=== PATIENT | female | born 1970 ===

== ENCOUNTER 2019-12-30 11:00 | Outpatient (RCR) | payer OTHER, SELFPAY ==
--- NOTE | 2019-12-16 13:43 | HO.PHPPROGNO ---
Subjective Subjective Reason For Visit: F33.2 Assessment & Plan Certification I certify that partial hospital treatment is medically necessary due to the symptoms and problems resulting from the patient's mental illness and the failure to treat the patient at the partial hospital level of care would likely result in the patient requiring inpatient psychiatric care which could not be prevented at a less intensive level of care. Greater than 50% of the session was spent on counseling and/or coordination of care Discharge Plan Discharge Attending provider: Ronny Mai Medications: No Action olanzapine 5 mg tablet 1 tab PO BEDTIME RF: 0 gabapentin 100 mg capsule 1 cap PO BID RF: 0 albuterol sulfate 90 mcg/actuation HFA aerosol inhaler 1 puff PO Q4H PRN (Reason: Respiratory Distress) RF: 0 fluoxetine 20 mg capsule 1 cap PO DAILY RF: 0
--- NOTE | 2019-12-16 20:47 | HO.PHPPROGNO ---
Subjective Subjective Date of Service: 12/16/19 Reason For Visit: F33.2 Interim History: Anahi reports she is tolerating current regime, however, she is still not sleeping well Medication Compliance: Yes Side effects from medications: No Attending Groups: Yes Mental Status Exam Mental Status Exam Patient Orientation: Person, Place, Time and Situation Level of Consciousness: Awake and Alert Patient Behavior: Appropriate and Anxious Mood Description: Depressed, Anxious and Sad Affect Description: Depressed and Anxious Patient Cognition Impaired: No Ability to Follow Directions: Excellent Speech Pattern: Clear Memory Description: Intact Thought Process: Intact Thought Content: Intact Depressive Symptoms: Insomnia Judgement: Good Judgement and Insight: Intact Assessment & Plan Patient educated on: medication risk/benefits and therapeutic strategies Informed Consent: understands and further education needed Reason for contiued partial hosp. stay Substantial Risk for: harm to self and rapid decompensation Certification I certify that partial hospital treatment is medically necessary due to the symptoms and problems resulting from the patient's mental illness and the failure to treat the patient at the partial hospital level of care would likely result in the patient requiring inpatient psychiatric care which could not be prevented at a less intensive level of care. Greater than 50% of the session was spent on counseling and/or coordination of care Discharge Plan Discharge Attending provider: Ronny Mai Medications: No Action olanzapine 5 mg tablet 1 tab PO BEDTIME RF: 0 gabapentin 100 mg capsule 1 cap PO BID RF: 0 albuterol sulfate 90 mcg/actuation HFA aerosol inhaler 1 puff PO Q4H PRN (Reason: Respiratory Distress) RF: 0 fluoxetine 20 mg capsule 1 cap PO DAILY RF: 0
--- NOTE | 2019-12-23 11:42 | HO.PHPPROGNO ---
Subjective Subjective Date of Service: 12/23/19 Reason For Visit: F33.2 Interim History: Anahi reports medication increased with out patient team. Fluoxetine to 40 mg daily and Olanzapine to 7.5 mg HS. Discussed taking steps to improve self care and asks if we can refer her for nutritional counseling. Medication Compliance: Yes Side effects from medications: No Attending Groups: Yes Mental Status Exam Mental Status Exam Patient Orientation: Person, Place, Time and Situation Level of Consciousness: Awake, Appropriate and Alert Patient Behavior: Appropriate and Cooperative Mood Description: Depressed and Flat Affect Description: Appropriate and Flat Patient Cognition Impaired: No Ability to Follow Directions: Excellent Speech Pattern: Clear Memory Description: Intact Hallucinations: None Delusions: Not Present Thought Process: Intact Thought Content: positive for Intact Depressive Symptoms: Diff. Making Decisions, Changes in Appetite, Feelings of Worthlessness, Hopelessness, Feelings of Guilt, Unhappiness and Loss of Energy Judgement: Good Assessment & Plan Patient educated on: medication risk/benefits and therapeutic strategies Informed Consent: understands and further education needed Reason for contiued partial hosp. stay Substantial Risk for: harm to self, inability to function and rapid decompensation Certification I certify that partial hospital treatment is medically necessary due to the symptoms and problems resulting from the patient's mental illness and the failure to treat the patient at the partial hospital level of care would likely result in the patient requiring inpatient psychiatric care which could not be prevented at a less intensive level of care. Greater than 50% of the session was spent on counseling and/or coordination of care Discharge Plan Discharge Attending provider: Ronny Mai Additional Instructions: Out patient team has increased Fluoxetine to 40 mg daily and Olanzapine to 7.5 mg hs. Medications: Continued trazodone 100 mg tablet 100 mg PO BEDTIME MDD 100 mg PRN (Reason: insomnia) Qty: 30 RF: 0 Discontinued olanzapine 5 mg tablet 1 tab PO BEDTIME RF: 0 fluoxetine 20 mg capsule 1 cap PO DAILY RF: 0 No Action gabapentin 100 mg capsule 1 cap PO BID RF: 0 albuterol sulfate 90 mcg/actuation HFA aerosol inhaler 1 puff PO Q4H PRN (Reason: Respiratory Distress) RF: 0 fluoxetine 40 mg 40 mg PO DAILY RF: 0 olanzapine 7.5 mg 7.5 mg PO BEDTIME RF: 0
--- NOTE | 2019-12-29 15:45 | PC.NURSE ---
12/29/2019 Spoke with client about tomorrow being her last day. She is interested in Day treatment. I called and spoke with Berta Carlisle from [facility] day treatment and she states that they are only having one group per day and that the client is not a good fit due to her baseline level of depression. radha
--- NOTE | 2019-12-30 11:12 | PC.NURSE ---
Spoke to patient, patient to reach out to her PCP to get a referral to a manager business planning to learn heathy eating habits.
--- NOTE | 2019-12-30 15:15 | PC.NURSE ---
Called the client's therapist to inform her of client's discharge and ongoing level of depression.
--- NOTE | 2019-12-31 15:34 | PM.EVENT ---
Event Note Event Note: Pt's final day of Partial Hospital Program was 12/30/19. Call to pt on that day to review medications, answer questions. Pt did not answer and no voice mail was set up on her telephone. As a result, she was not contacted.
== END 2019-12-30 23:55 | disposition home or self-care (01) ==
LOC: HO.PHPA 11:00
PROVIDERS: Visit Provider Psychiatry & Neurology Psychiatry
DX: F33.2 Major depressive disorder, recurrent severe without psychotic features (principal)
CPT/HCPCS: 90853; 99213

== ENCOUNTER 2020-02-23 10:48 | Outpatient (REF) | payer OTHER, SELFPAY ==
[2020-02-24 11:10] LABS: BV Int Neg Control Negative (Negative); BV Int Pos Control Positive (Positive)
[2020-02-26 06:38] LABS: CT PCR NOT DETECTED (Not Detect.); NG PCR NOT DETECTED (Not Detect.)
== END 2020-02-23 10:49 | disposition home or self-care (01) ==
LOC: HO.LAB 10:48
PROVIDERS: PCP Hospitalist; Visit Provider Obstetrics & Gynecology
DX: Z01.419 Encounter for gynecological examination (general) (routine) without abnormal findings (principal); R35.0 Frequency of micturition
CPT/HCPCS: 83036; 87480; 87491; 87510; 87591; 87660

== ENCOUNTER 2020-04-04 14:23 | Outpatient (REF) | payer OTHER, SELFPAY | END 2020-04-04 14:24 | disposition home or self-care (01) | LOC: HO.LAB 14:23 | PROVIDERS: PCP Hospitalist; Visit Provider Internal Medicine | DX: Z20.822 Contact with and (suspected) exposure to COVID-19 (principal) | CPT/HCPCS: 36415; C9803; U0003 ==

== ENCOUNTER 2020-06-19 16:29 | Outpatient (REF) | payer OTHER, SELFPAY ==
--- NOTE | ~2020-06-19 | MM_ITS ---
EXAMINATION: MM SCREENING DIGITAL BREAST TOMOSYNTHESIS, BILATERAL CLINICAL INFORMATION: Screening. Asymptomatic. No local outside prior exams are unable to be located. The lifetime risk of breast cancer based on the Tyrer-Cuzick Model is 8%. COMPARISON: None. TECHNIQUE: Digital breast tomosynthesis is performed in both the craniocaudal and mediolateral oblique views along with computer-aided detection (CAD). Synthesized 2D images are generated from the tomosynthesis. FINDINGS: There are scattered areas of fibroglandular density (ACR BI-RADS breast composition Category b). Breast tissue composition borders on predominantly fatty. Background fibroglandular and stromal densities are unremarkable. There is no significant mass or architectural abnormality. No abnormal calcifications. The axilla and skin contours are unremarkable. MM/MM tomosynthesis screening BI IMPRESSION: No mammographic evidence of malignancy. ASSESSMENT: BI-RADS 1: Negative RECOMMENDATION: Routine annual mammography screening. This patient's information was entered into a reminder system with a target due date for their next mammogram.
== END 2020-06-19 16:30 | disposition home or self-care (01) ==
LOC: HO.MAMMO 16:29
PROVIDERS: Visit Provider Hospitalist
DX: Z12.31 Encounter for screening mammogram for malignant neoplasm of breast (principal)
CPT/HCPCS: 77063; 77067

== ENCOUNTER 2020-07-03 09:11 | Outpatient (REF) | payer OTHER, SELFPAY ==
[2020-07-03 11:00] LABS: Alanine Aminotransferase 18 U/L (0-31); Albumin Level 3.8 g/dL (3.5-5.0); Alkaline Phosphatase 121 U/L (39-117); Anion Gap 14 (12-20); Aspartate Amino Transferase 16 U/L (5-31); Bilirubin Total 0.5 mg/dL (0.0-1.0); Blood Urea Nitrogen 14 mg/dL (9-16); Calcium 8.6 mg/dL (8.4-10.2); Carbon Dioxide 28 mmol/L (22-29); Chloride 103 mmol/L (96-108); Cholesterol 238 mg/dL; Estimated Glomerular Filt Rate > 60; Glucose Fasting 138 mg/dL (60-99); HDL Cholesterol 43 mg/dL; LDL Cholesterol Calculated 177 mg/dl; Potassium 4.2 mmol/L (3.3-5.1); Sodium 141 mmol/L (135-145); Total Protein 6.7 g/dL (6.5-8.0); Triglycerides 90 mg/dL
[2020-07-03 11:22] LABS: TSH reflex Free T4 3.38 uIU/mL (0.32-4.0)
== END 2020-07-03 09:12 | disposition home or self-care (01) ==
LOC: HO.WFDLDS 09:11
PROVIDERS: Visit Provider Family Medicine
DX: Z00.00 Encounter for general adult medical examination without abnormal findings (principal); Z13.220 Encounter for screening for lipoid disorders; Z13.29 Encounter for screening for other suspected endocrine disorder
CPT/HCPCS: 36415; 80053; 80061; 84443

== ENCOUNTER 2020-08-22 14:15 | Outpatient (REF) | payer OTHER, SELFPAY ==
[2020-08-22 15:52] LABS: Hematocrit 35.8 % (37-47); Mean Corpuscular HGB Conc 30.7 g/dl (31.0-35.0); Mean Corpuscular Volume 81.4 fL (80-98); Mean Platelet Volume 10.8 fL (9.4-12.3); Platelet Count 299 X10*3/uL (160-400); Red Cell Distribution Width 13.9 % (11.0-16.0); White Blood Count 7.6 X10*3/uL (4.8-10.8)
== END 2020-08-22 14:16 | disposition home or self-care (01) ==
LOC: HO.LAB 14:15
PROVIDERS: PCP Hospitalist; Visit Provider Nurse Practitioner Family
DX: Z01.818 Encounter for other preprocedural examination (principal); K21.9 Gastro-esophageal reflux disease without esophagitis
CPT/HCPCS: 36415; 85027; 99202

== ENCOUNTER 2020-09-05 10:59 | Outpatient (REF) | payer OTHER, SELFPAY ==
[2020-09-05 14:13] LABS: Alanine Aminotransferase 13 U/L (0-31); Albumin Level 3.8 g/dL (3.5-5.0); Alkaline Phosphatase 122 U/L (39-117); Anion Gap 9 (12-20); Aspartate Amino Transferase 14 U/L (5-31); Bilirubin Total 0.5 mg/dL (0.0-1.0); Blood Urea Nitrogen 14 mg/dL (9-16); Calcium 9.1 mg/dL (8.4-10.2); Carbon Dioxide 31 mmol/L (22-29); Chloride 103 mmol/L (96-108); Cholesterol 207 mg/dL; Estimated Glomerular Filt Rate > 60; Glucose Fasting 132 mg/dL (60-99); HDL Cholesterol 44 mg/dL; LDL Cholesterol Calculated 139 mg/dl; Potassium 4.2 mmol/L (3.3-5.1); Sodium 139 mmol/L (135-145); Total Protein 6.8 g/dL (6.5-8.0); Triglycerides 120 mg/dL
== END 2020-09-05 11:00 | disposition home or self-care (01) ==
LOC: HO.WFDLDS 10:59
PROVIDERS: Visit Provider Family Medicine
DX: Z00.00 Encounter for general adult medical examination without abnormal findings (principal)
CPT/HCPCS: 36415; 80053; 80061

== ENCOUNTER 2021-02-23 09:06 | Outpatient (REF) | payer OTHER, SELFPAY ==
--- NOTE | ~2021-02-23 | XR_ITS ---
EXAMINATION: XR CHEST CLINICAL INFORMATION: Wheezing. COMPARISON: None TECHNIQUE: 2 views of the chest were obtained. FINDINGS: No significant abnormality is noted involving the heart, lungs, mediastinum, or soft tissues. There is a 5 mm rounded density seen overlying the anterior aspect of the left fourth rib which may represent bone island or calcified granuloma. XR/XR chest 2V IMPRESSION: No acute disease.
--- NOTE | ~2021-02-23 | XR_ITS ---
EXAMINATION: XR CERVICAL SPINE CLINICAL INFORMATION: Cervicalgia. COMPARISON: None TECHNIQUE: 3 views of the cervical spine were obtained. FINDINGS: No abnormal prevertebral soft tissue swelling is seen. No acute fracture of the cervical spine is seen. There is mild narrowing of the C4-C5 and C5-C6 disc spaces. There is marginal spurring seen at C5-C7. XR/XR cervical spine 2V IMPRESSION: Mild cervical spondylosis without evidence of acute fracture.
== END 2021-02-23 09:07 | disposition home or self-care (01) ==
LOC: HO.XRAY 09:06
PROVIDERS: Absent Provider Hospitalist; PCP Hospitalist; Visit Provider Advanced Practice Midwife
DX: Z01.419 Encounter for gynecological examination (general) (routine) without abnormal findings (principal); R06.2 Wheezing; M54.2 Cervicalgia; Z83.3 Family history of diabetes mellitus; Z20.2 Contact with and (suspected) exposure to infections with a predominantly sexual mode of transmission
CPT/HCPCS: 71046; 72040

== ENCOUNTER 2021-02-23 11:15 | Outpatient (REF) | payer OTHER, SELFPAY ==
[2021-02-24 03:00] LABS: CT PCR NOT DETECTED (Not Detect.); NG PCR NOT DETECTED (Not Detect.)
[2021-02-26 22:07] LABS: HPV mRNA E6/E7 rflx Not Detected (Not Detected)
== END 2021-02-23 11:16 | disposition home or self-care (01) ==
LOC: HO.LAB 11:15
PROVIDERS: Visit Provider Advanced Practice Midwife
DX: Z12.4 Encounter for screening for malignant neoplasm of cervix (principal); Z11.3 Encounter for screening for infections with a predominantly sexual mode of transmission; Z11.51 Encounter for screening for human papillomavirus (HPV)
CPT/HCPCS: 87491; 87591; 87624; 88142

== ENCOUNTER 2021-03-19 19:15 | Inpatient (IN) | payer OTHER, SELFPAY ==
[2021-03-19 19:28] VITALS: BP 135/68; PULSE 84; RESP 16; TEMP 36.7; O2SAT 99; BMI 36.3
--- NOTE | 2021-03-19 19:33 | ED_ITS ---
HPI - Psych General Stated Complaint: HALLUCINATIONS,ANXIETY Time Seen by Provider: 03/19/21 19:27 Source: patient Mode of arrival: EMS Limitations: no limitations History of Present Illness MD complaint: suicidal ideation and feels depressed Onset (ago): day(s) Duration: getting worse History of same: Yes Relieving factors: none Exacerbating factors: none Context: significant life stressor Associated psychiatric symptoms: depression, suicidal ideation and auditory hallucinations Associated symptoms: denies other symptoms Treatments prior to arrival: placed on mental health hold If self harm: admits thoughts of self harm Related Data Home Medications Medication Instructions Recorded Confirmed sertraline 100 mg tablet 100 mg PO DAILY 08/22/20 12/05/20 polyethylene glycol 3350 17 17 g PO DAILY PRN 12/05/20 12/05/20 gram/dose oral powder (Miralax) aripiprazole 5 mg tablet 5 mg PO DAILY 02/21/21 clonidine HCl 0.1 mg tablet 0.1 mg PO TID tab 02/21/21 escitalopram oxalate 10 mg tablet 10 mg PO DAILY 02/21/21 hydroxyzine HCl 25 mg tablet 25 mg PO DAILY 02/21/21 pyridoxine (vitamin B6) 250 mg 0 mg PO 02/21/21 tablet (Vitamin B-6) quetiapine 400 mg tablet 400 mg PO BEDTIME 02/21/21 Previous Rx's Medication Instructions Recorded fluoxetine 20 mg capsule 20 mg PO DAILY #30 cap 01/12/20 clotrimazole 1 % topical cream 1 applic TOPICAL BID #28.35 g 01/20/20 [id number] 1 cap PO BID PRN 30 Days #10 cap 11/20/20 50 mg-300 mg-40 mg capsule (Fioricet) montelukast 10 mg tablet 10 mg PO DAILY 90 Days #90 tab 11/29/20 ProAir RespiClick 90 mcg/actuation 1 inh INHALATION Q4-6H PRN 30 Days 12/05/20 breath activated (albuterol #1 ea NS sulfate) docusate sodium 100 mg capsule 100 mg PO BEDTIME #30 cap 12/05/20 terbinafine HCl 1 % topical cream 1 appl TOPICAL BID 14 Days #30 g 12/05/20 (Antifungal (terbinafine)) gabapentin 100 mg capsule 200 mg PO TID 30 Days #180 cap 01/10/21 olanzapine 10 mg tablet 10 mg PO BEDTIME 30 Days #30 tab 02/05/21 fluticasone 232 mcg-salmeterol 14 1 inh INHALATION Q12H 30 Days #1 ea 02/21/21 mcg/actuation breath activated powdr melatonin 10 mg capsule 20 mg PO DAILY 30 Days #60 cap 02/21/21 omeprazole 20 mg capsule,delayed 20 mg PO QAM #90 cap 03/02/21 release Allergies Allergy/AdvReac Type Severity Reaction Status Date / Time No Known Allergies Allergy Verified 03/19/21 14:53 [No Known Allergies*] Review of Systems Review of Systems: Constitutional : No Fever, No Chills ENT/Mouth : No Ear Pain, No Nasal Congestion, No sore throat Eyes: No Eye Pain, No Swelling, No Redness Cardiovascular : No Chest Pain, No SOB Respiratory : No Cough, No Sputum, No Dyspnea Gastrointestinal : No Nausea, No Vomiting, No Diarrhea, No Hematochezia, No Melena Genitourinary : No Dysuria, No Urinary Frequency, No Hematuria Musculoskeletal : No Myalgias Skin : No Skin Lesions, No rash Neuro : No Weakness, No Numbness, No Paresthesias, No Dizziness, No Headache Psych : positive Anxiety, positive Depression, positive SI no HI Heme/Lymph: No Lymphadenopathy Endocrine : No Polyuria, No Polydipsia All other systems reviewed and are negative [facility] Past Medical History Medical History Anxiety Depression History of gastrectomy Screen for STD (sexually transmitted disease) Surgical History History of hysterectomy, supracervical History of sleeve gastrectomy Family History Family History Father Diabetes Mother Diabetes Heart disease Family/Other FH: mental illness Maternal Aunt Ovarian cancer Social History Social History Housing: House Alcohol intake: never Patient Tobacco Use Status: Never used Tobacco e-Cigarette/Vaping Use: Never Used Second Hand Smoke Exposure: No Advance Directives: No Advance Directives Information Provided: No Patient : No service: No Current occupational status: unemployed Sexual orientation: Straight/Heterosexual Gender identity: Female Cognitive needs: No Hearing needs: No Vision needs: No Physical Exam Vital Signs: Appearance: Alert. Oriented X3. No acute distress. Eyes: Pupils equal, round and reactive to light. ENT: Pharynx normal. Neck: Normal inspection. Neck supple. CVS: Normal heart rate and rhythm. Pulses normal. Respiratory: No respiratory distress. Breath sounds normal. Abdomen: Soft and nontender. Skin: Skin warm and dry. Normal skin color. Normal skin turgor. Extremities: No lower extremity edema. No calf ttp Neuro: Oriented X 3. No motor deficit. No sensory deficit. CN 2-12 intact Psych: flat, withdrawn, depressed Course Course Course Narrative: Physician observation started at 736pm. Patient placed in physician observation because the patient needed more time for placement given SI complaints. At the time observation was started the patient's vitals were stable, patient is alert and oriented but slightly anxious, Neuro: nonfocal, CV RRR, Lungs clear MDM - Psych MDM Narrative Medical decision making narrative: 50 yo female with hx of schizoaffective disorder here with c/o AH, SI here with section 12 and bedsearch from community - at this time will need labs, COVID swab, has no medical complaints at this time Discharge Plan Discharge Clinical Impression: Suicidal ideation Patient Disposition: Still a Patient Prescriptions: No Action fluoxetine 20 mg capsule 20 mg PO DAILY Qty: 30 RF: 3 [id number]-aqlgtwgpjrijx-duew [Fioricet] 50-300-40 mg capsule 1 cap PO BID PRN (Reason: pain) 30 Days Qty: 10 RF: 0 montelukast 10 mg tablet 10 mg PO DAILY 90 Days Qty: 90 RF: 1 gabapentin 100 mg capsule 200 mg PO TID 30 Days Qty: 180 RF: 1 olanzapine 10 mg tablet 10 mg PO BEDTIME 30 Days Qty: 30 RF: 0 omeprazole 20 mg capsule,delayed release(DR/EC) 20 mg PO QAM Qty: 90 RF: 1 clotrimazole 1 % cream 1 applic topical BID Qty: 28.35 RF: 0 polyethylene glycol 3350 [Miralax] 17 gram/dose powder 17 g PO DAILY PRN (Reason: constipation) RF: 0 ProAir RespiClick 90 mcg/actuation aerosol powdr breath activated 1 inh inhalation Q4-6H PRN (Reason: shortness of breath or wheezing) 30 Days Qty: 1 RF: 5 docusate sodium 100 mg capsule 100 mg PO BEDTIME Qty: 30 RF: 3 terbinafine HCl [Antifungal (terbinafine)] 1 % cream 1 appl topical BID 14 Days Qty: 30 RF: 0 quetiapine 400 mg tablet 400 mg PO BEDTIME RF: 0 pyridoxine (vitamin B6) [Vitamin B-6] 250 mg tablet 0 mg PO RF: 0 escitalopram oxalate 10 mg tablet 10 mg PO DAILY RF: 0 hydroxyzine HCl 25 mg tablet 25 mg PO DAILY RF: 0 aripiprazole 5 mg tablet 5 mg PO DAILY RF: 0 melatonin 10 mg capsule 20 mg PO DAILY 30 Days Qty: 60 RF: 3 fluticasone propion-salmeterol 232-14 mcg/actuation aerosol powdr breath activated 1 inh inhalation Q12H 30 Days Qty: 1 RF: 3 sertraline 100 mg tablet 100 mg PO DAILY RF: 0 clonidine HCl 0.1 mg tablet 0.1 mg PO TID RF: 0
[2021-03-19] MEDS: LORazepam 1 MG TABLET PO (19:48)
[2021-03-19 20:01] LABS: Appearance Urine CLEAR; Color Urine YELLOW; Glucose Urine UA NEG (NEG); Leukocyte Esterase Urine NEG (NEG); Nitrite Urine NEG (NEG); UACC Culture Trigger NO; Urine Blood 1+ (NEG); Urine Ketones NEG (NEG); Urine Protein NEG (NEG-TRACE)
[2021-03-19 20:03] LABS: UPreg QC Valid YES; Urine Pregnancy NEGATIVE (NEGATIVE)
[2021-03-19 20:08] LABS: Bacteria Urine TRACE /LPF; Squamous Epithelial Cell Urine TRACE /LPF; WBC Urine 0-2 /HPF (0-4)
[2021-03-19 20:11] LABS: MANUAL DIFF FLAG NO
[2021-03-19 20:12] LABS: Basophils Percent Auto 0.2 % (0-2); Hematocrit 38.7 % (37.0-47.0); Hemoglobin 11.8 g/dl (12.0-16.0); Imm Gran Abs Auto 0.02 X10*3/uL (0.00-0.03); Imm Gran Pct Auto 0.3 % (0.0-0.4); Lymphocytes Absolute Auto 0.7 X10*3/uL (1.2-4.9); Lymphocytes Percent Auto 10.4 % (20-40); Mean Corpuscular HGB Conc 30.5 g/dl (31.0-35.0); Mean Corpuscular Hemoglobin 24.3 pg (27.0-33.0); Mean Corpuscular Volume 79.6 fL (80.0-98.0); Mean Platelet Volume 9.9 fL (9.4-12.3); Monocytes Absolute Auto 0.7 X10*3/uL (0.1-1.2); Monocytes Percent Auto 10.3 % (2-11); Neutrophils Absolute Auto 5.1 x10*3/uL (2.0-8.3); Neutrophils Percent Auto 78.8 % (45-73); Platelet Count 280 X10*3/uL (160-400); Red Blood Count 4.86 X10*6/uL (4.20-5.50); Red Cell Distribution Width 14.5 % (11.0-16.0); White Blood Count 6.4 X10*3/uL (4.8-10.8)
[2021-03-19 20:13] LABS: COVID-19 Test Negative (Negative)
[2021-03-19 20:15] LABS: Amphetamine Screen Urine Not Detected (Not Detect); Barbiturates, Urine Not Detected (Not Detect); Benzodiazepines Screen Urine Not Detected (Not Detect); Cannabinoid Screen Urine Not Detected (Not Detect); Cocaine Screen Urine Not Detected (Not Detect); Fentanyl, urine Not Detected (Not Detect); Opiate Screen Urine Not Detected (Not Detect); Phencyclidine Screen Urine Not Detected (Not Detect)
[2021-03-19 20:29] LABS: Alanine Aminotransferase 17 U/L (0-31); Alkaline Phosphatase 140 U/L (39-117); Anion Gap 9 (12-20); Aspartate Amino Transferase 16 U/L (5-31); Bilirubin Direct < 0.2 mg/dL (0.0-0.5); Bilirubin Total 0.4 mg/dL (0.0-1.0); Blood Urea Nitrogen 11 mg/dL (9-16); Carbon Dioxide 31 mmol/L (22-29); Chloride 103 mmol/L (96-108); Creatinine Clr Calc Pharmacy 93.2; Estimated Glomerular Filt Rate > 60; Glucose Random 156 mg/dL (60-115); Potassium 3.9 mmol/L (3.3-5.1); Sodium 139 mmol/L (135-145); Total Protein 7.7 g/dL (6.5-8.0)
[2021-03-19] MEDS: Acetaminophen 325 MG TABLET 487.5 MG PO (23:46)
[2021-03-19 23:48] VITALS: BP 140/56; PULSE 100; RESP 20; TEMP 37.6; O2SAT 96
--- NOTE | 2021-03-20 | ECG_ITS ---
Test Reason : med clearance Blood Pressure : / mmHG Vent. Rate : 074 BPM Atrial Rate : 074 BPM P-R Int : 166 ms QRS Dur : 088 ms QT Int : 386 ms P-R-T Axes : 058 022 050 degrees QTc Int : 428 ms Normal sinus rhythm Normal ECG No previous ECGs available Referred By: Ellen Cano Electronically Signed By:RUEL WARD MD
--- NOTE | 2021-03-20 06:14 | PC.NURSE ---
Patient slept through the night, no distress observed/reported, behavior appropriate, cooperative, and non concerning, medication rec completed/approved/MAY updated, appetite good, elimination intact, patient was assessed at [facility] clinic in [place], disposition per [facility] is Section 12 inpatient bed search, pending M5 admission, VSS, will continue to monitor
--- NOTE | 2021-03-20 07:23 | PC.NURSE ---
patient appears to remain at rest at present respirations are even and unlabored patient appears in no distress
[2021-03-20 08:24] VITALS: BP 156/76; PULSE 90; RESP 15; TEMP 36.7; O2SAT 96
[2021-03-20] MEDS: ARIPiprazole 5 MG TABLET PO (08:54)
[2021-03-20] MEDS: hydrOXYzine HCL 25 MG TABLET PO (08:54)
[2021-03-20] MEDS: Gabapentin 100 MG CAPSULE 200 MG PO ×3 (08:54→20:00)
[2021-03-20] MEDS: cloNIDine HCL 0.1 MG TABLET PO ×3 (08:54→19:59)
[2021-03-20] MEDS: Montelukast Sodium 10 MG TABLET PO (08:54)
[2021-03-20] MEDS: Escitalopram Oxalate 10 MG TABLET PO (08:55)
[2021-03-20] MEDS: Omeprazole 20 MG CAPSULE.DR PO (08:55)
[2021-03-20] MEDS: Pyridoxine HCl (Vitamin B6) 50 MG TABLET 250 MG PO (09:00)
[2021-03-20 16:36] VITALS: BP 145/78; PULSE 102
--- NOTE | 2021-03-20 16:46 | PC.ADMIT ---
Pt is a 51 year old [place] female who presents to from [facility] at approx 1553 on a cv status. Pt is covid - tox screen -. Pt reported that her anxiety was an 8, depression a 10. Pt reporting neck pain for approximately three days with feeling of pinching in her neck. Pt denied AH at this time, but reported that she has VH of male shades. Pt mentioned that she has a hx of asthma and had by-pass surgery in the past. Pt is diagnosed with persistent depressive disorder and posttraumatic stress disorder. Pt had a set of vitals taken and given scheduled gabapentin and clonidine. Per chart review, pt arrived to ED on a section 12a after being evaluated by [facility] at home for command AH and symptoms of depression marked by low mood and disturbance to sleep and appetite. Pt has a hx of suicide attempts via intentional overdose in July 2020 and later in 2020 her daughter attempted suicide and, as a result, lost her unborn child. Pt has several [facility] admissions, one inpt psych admission in July 2020 at [facility]. Provider called for orders and notified of admission. Start treatment plan and monitor for safety.
[2021-03-20] MEDS: QUEtiapine Fumarate 400 MG TABLET PO (20:00)
[2021-03-20] MEDS: traZODone HCL 50 MG TABLET PO (20:04)
--- NOTE | 2021-03-20 20:17 | PC.NURSE ---
Pt signed a 3-day notice on , up on 03-23-21
[2021-03-21] MEDS: traZODone HCL 50 MG TABLET PO (03:26)
[2021-03-21 06:00] VITALS: BP 140/70; PULSE 88; RESP 18; TEMP 36.7; O2SAT 95
[2021-03-21] MEDS: Omeprazole 20 MG CAPSULE.DR PO (09:02)
[2021-03-21] MEDS: hydrOXYzine HCL 25 MG TABLET PO (09:02)
[2021-03-21] MEDS: ARIPiprazole 5 MG TABLET PO (09:03)
[2021-03-21] MEDS: Pyridoxine HCl (Vitamin B6) 50 MG TABLET 250 MG PO (09:03)
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
[2021-03-21] MEDS: Escitalopram Oxalate 10 MG TABLET PO (09:04)
[2021-03-21] MEDS: Gabapentin 100 MG CAPSULE 200 MG PO ×3 (09:04→20:25)
[2021-03-21] MEDS: cloNIDine HCL 0.1 MG TABLET PO ×3 (09:04→20:25)
[2021-03-21] MEDS: Montelukast Sodium 10 MG TABLET PO (09:04)
[2021-03-21 09:05] LABS: Cholesterol 233 mg/dL; HDL Cholesterol 37 mg/dL; LDL Cholesterol Calculated 177 mg/dl; Triglycerides 95 mg/dL
[2021-03-21 09:08] LABS: Estimated Average Glucose 143 mg/dL; Hemoglobin A1C 150.8599 umol/L; Hemoglobin A1c % 6.6 %
[2021-03-21 09:26] LABS: Thyroid Stimulating Hormone 1.17 uIU/mL (0.32-4.0)
[2021-03-21 09:44] LABS: Folate 15.1 ng/mL (> or = 4.0); Vitamin B12 777 pg/mL (200-900)
[2021-03-21 18:00] VITALS: BP 130/83; PULSE 90; RESP 20; TEMP 36.6; O2SAT 93
[2021-03-21] MEDS: QUEtiapine Fumarate 400 MG TABLET PO (20:25)
[2021-03-21] MEDS: risperiDONE 1 MG TABLET PO (20:25)
[2021-03-21] MEDS: Lithium Carbonate 300 MG TABLET 150 MG PO (20:25)
[2021-03-21] MEDS: LORazepam 1 MG TABLET PO (20:26)
[2021-03-22 08:45] VITALS: BP 133/65; PULSE 103; TEMP 36.8
[2021-03-22] MEDS: Escitalopram Oxalate 10 MG TABLET PO (09:38)
[2021-03-22] MEDS: risperiDONE 1 MG TABLET PO ×2 (09:38→20:12)
[2021-03-22] MEDS: hydrOXYzine HCL 25 MG TABLET PO (09:38)
[2021-03-22] MEDS: Omeprazole 20 MG CAPSULE.DR PO (09:38)
[2021-03-22] MEDS: cloNIDine HCL 0.1 MG TABLET PO ×3 (09:38→20:14)
[2021-03-22] MEDS: Pyridoxine HCl (Vitamin B6) 50 MG TABLET 250 MG PO (09:38)
[2021-03-22] MEDS: Montelukast Sodium 10 MG TABLET PO (09:38)
[2021-03-22] MEDS: Lithium Carbonate 300 MG TABLET 150 MG PO ×2 (09:39→20:13)
[2021-03-22] MEDS: Gabapentin 100 MG CAPSULE 200 MG PO ×3 (09:40→20:12)
--- NOTE | 2021-03-22 14:37 | HO.PSYCHPN ---
Subjective Subjective Date of Service: 03/22/21 Reason For Visit: HALLUCINATIONS,ANXIETY Subjective Notes: Conditional Voluntary Interim History: Pt met with this engineering technical writer and clinician Michelle. Pt with flat, constricted affect. Pt reports sleeping better last night. She reports she did not hear voices last night. She continues to endorse depressed mood, anhedonia, hopeless. She also reports dizziness. She reports passive SI but denies any plan or intent to hurt herself. Review of Systems Review of Systems Constitutional : No Fever, No Chills ENT/Mouth : No Ear Pain, No Nasal Congestion, No sore throat Eyes: No Eye Pain, No Swelling, No Redness Cardiovascular : No Chest Pain, No SOB Respiratory : No Cough, No Sputum, No Dyspnea Gastrointestinal : No Nausea, No Vomiting, No Diarrhea, No Hematochezia, No Melena Genitourinary : No Dysuria, No Urinary Frequency, No Hematuria Musculoskeletal : No Myalgias Skin : No Skin Lesions, No rash Neuro : No Weakness, No Numbness, No Paresthesias, No Dizziness, No Headache Psych : positive Anxiety, positive Depression, positive SI no HI Heme/Lymph: No Lymphadenopathy Endocrine : No Polyuria, No Polydipsia All other systems reviewed and are negative Mental Status Exam Mental Status Exam Narrative: Appearance: casually groomed, fair hygiene in NAD Behavior:minimal eye contact, cooperative psychomotor:some degree of retardation noted Speech:clear, some delayed in response, spontaneous Thought process:linear Thought content:no overt psychosis, feeling hopeless Mood: depressed Affect: blunted SI:passive HI:none VH/AH:less AH Delusions:no overt delusional content reported Insight/judgment:fair x 2. Memory/cog: alert, orientedx 3. not formally tested. poor attention, poor concentration could be related to psychiatric symptoms. Diagnostics Vital Signs (24Hr): Vital Signs - 24 hr 03/21/21 18:00 03/22/21 08:45 03/22/21 16:00 Temperature 97.8 F 98.3 F 97.8 F Pulse Rate 90 103 H 84 Respiratory Rate 20 Blood Pressure 130/83 133/65 117/58 L Pulse Oximetry 93 BMI result Body Mass Index 36.3 Labs Results: 03/19/21 20:05 03/19/21 20:05 Labs: Laboratory Results - last 48 hr 03/21/21 03/21/21 03/21/21 07:56 07:56 07:56 Estimat Average Glucose 143 Hemoglobin A1c % 6.6 Triglycerides 95 Cholesterol 233 LDL Cholesterol, Calc 177 HDL Cholesterol 37 Vitamin B12 777 Folate 15.1 TSH 1.17 Medications Medications Current Medications Acetaminophen (Acetaminophen 325 Mg Tablet) 487.5 mg PO Q8H PRN PRN Reason: Headache Last Admin: 03/19/21 23:46 Dose: 487.5 mg Documented by: Al Hydroxide/Mg Hydroxide (Magnesium Hydrox/Alum Hydrox 30 Ml Oral.Susp) 30 ml PO Q6H PRN PRN Reason: Heartburn/Nausea Clonidine HCl (Clonidine Hcl 0.1 Mg Tablet) 0.1 mg PO TID [facility]; Protocol Last Admin: 03/22/21 15:59 Dose: 0.1 mg Documented by: Escitalopram Oxalate (Escitalopram Oxalate 10 Mg Tablet) 10 mg PO DAILY [facility] Last Admin: 03/22/21 09:38 Dose: 10 mg Documented by: Gabapentin (Gabapentin 100 Mg Capsule) 200 mg PO TID [facility] Last Admin: 03/22/21 15:59 Dose: 200 mg Documented by: Hydroxyzine HCl (Hydroxyzine Hcl 25 Mg Tablet) 25 mg PO DAILY [facility] Last Admin: 03/22/21 09:38 Dose: 25 mg Documented by: Hydroxyzine HCl (Hydroxyzine Hcl 25 Mg Tablet) 25 mg PO BEDTIME PRN PRN Reason: Anxiety [place] Carbonate ([place] Carbonate 300 Mg Tablet) 150 mg PO BID [facility] Last Admin: 03/22/21 09:39 Dose: 150 mg Documented by: Lorazepam (Lorazepam 1 Mg Tablet) 1 mg PO BEDTIME [facility] Last Admin: 03/21/21 20:26 Dose: 1 mg Documented by: Magnesium Hydroxide (Milk Of Magnesia 30 Ml Oral.Susp) 30 ml PO DAILY PRN PRN Reason: Constipation Montelukast Sodium (Montelukast Sodium 10 Mg Tablet) 10 mg PO DAILY [facility] Last Admin: 03/22/21 09:38 Dose: 10 mg Documented by: Omeprazole (Omeprazole 20 Mg Capsule.Dr) 20 mg PO DAILY [facility] Last Admin: 03/22/21 09:38 Dose: 20 mg Documented by: Pyridoxine HCl (Pyridoxine Hcl (Vitamin B6) 50 Mg Tablet) 250 mg PO DAILY [facility] Last Admin: 03/22/21 09:38 Dose: 250 mg Documented by: Quetiapine Fumarate (Quetiapine Fumarate 400 Mg Tablet) 400 mg PO BEDTIME [facility] Last Admin: 03/21/21 20:25 Dose: 400 mg Documented by: Risperidone (Risperidone 1 Mg Tablet) 1 mg PO BID [facility] Last Admin: 03/22/21 09:38 Dose: 1 mg Documented by: Trazodone HCl (Trazodone Hcl 50 Mg Tablet) 50 mg PO BEDTIME PRN PRN Reason: Insomnia Last Admin: 03/21/21 03:26 Dose: 50 mg Documented by: Allergies Allergies Allergy/AdvReac Type Severity Reaction Status Date / Time No Known Allergies Allergy Verified 03/19/21 14:53 [No Known Allergies*] Assessment & Plan Assessment & Plan (1) MDD (major depressive disorder), recurrent, severe, with psychosis: Status: Acute Code(s): F33.3 - Major depressive disorder, recurrent, severe with psychotic symptoms Assessment and Plan: Mrs. Obregon is a 51 year-old woman with hx of mdd with psychosis versus bipolar disorder admitted for depression and SI. Assessment and Plan: 1. continue lithium 150mg po BID 2. continue risperidone 1 mg po BID 3. continue lexapro 10mg po daily 4. obtain collateral information 5. after care planning. I spent minutes with the patient and/or on the patient floor today, greater than?50% of which was spent counseling/coordinating care. Reason for contiued inpatient stay Substantial Risk for: harm to self and inability to function
[2021-03-22 16:00] VITALS: BP 117/58; PULSE 84; TEMP 36.6
[2021-03-22] MEDS: QUEtiapine Fumarate 400 MG TABLET PO (20:13)
[2021-03-22] MEDS: LORazepam 1 MG TABLET PO (20:14)
[2021-03-23 08:55] VITALS: BP 132/62; PULSE 97; TEMP 37.1
[2021-03-23] MEDS: cloNIDine HCL 0.1 MG TABLET PO (09:19)
[2021-03-23] MEDS: Omeprazole 20 MG CAPSULE.DR PO (09:20)
[2021-03-23] MEDS: Montelukast Sodium 10 MG TABLET PO (09:20)
[2021-03-23] MEDS: Lithium Carbonate 300 MG TABLET 150 MG PO ×2 (09:20→21:13)
[2021-03-23] MEDS: Pyridoxine HCl (Vitamin B6) 50 MG TABLET 250 MG PO (09:21)
[2021-03-23] MEDS: risperiDONE 1 MG TABLET PO ×2 (09:21→21:13)
[2021-03-23] MEDS: hydrOXYzine HCL 25 MG TABLET PO (09:21)
[2021-03-23] MEDS: Gabapentin 100 MG CAPSULE 200 MG PO ×3 (09:21→21:12)
[2021-03-23] MEDS: Escitalopram Oxalate 10 MG TABLET PO (09:21)
--- NOTE | 2021-03-23 10:36 | HO.PSYCHPN ---
Subjective Subjective Date of Service: 03/23/21 Reason For Visit: HALLUCINATIONS,ANXIETY Subjective Notes: Conditional Voluntary Interim History: Pt reports she was able to sleep last night again, which was one of her biggest concerns. She reports slight improvement in symptoms of depression and hearing less voices. She does report hearing voices this morning telling her to harm self, she denies any plan or intent. She does appear with blank stare, seen at time staring in gordon. She does report some difficulty talking, poor concentration. She does have delayed response rate. No behavioral concerns. Medication Compliance: Yes Side effects from medications: No Review of Systems Review of Systems Constitutional : No Fever, No Chills ENT/Mouth : No Ear Pain, No Nasal Congestion, No sore throat Eyes: No Eye Pain, No Swelling, No Redness Cardiovascular : No Chest Pain, No SOB Respiratory : No Cough, No Sputum, No Dyspnea Gastrointestinal : No Nausea, No Vomiting, No Diarrhea, No Hematochezia, No Melena Genitourinary : No Dysuria, No Urinary Frequency, No Hematuria Musculoskeletal : No Myalgias Skin : No Skin Lesions, No rash Neuro : No Weakness, No Numbness, No Paresthesias, No Dizziness, No Headache Psych : positive Anxiety, positive Depression, positive SI no HI Heme/Lymph: No Lymphadenopathy Endocrine : No Polyuria, No Polydipsia All other systems reviewed and are negative Mental Status Exam Mental Status Exam Narrative: Appearance: casually groomed, fair hygiene in NAD Behavior:cooperative, minimal eye contact psychomotor:some retardation noted Speech:clear, delayed response rate/rhythm/volume, spontaneous Thought process:linear, poverty of thought Thought content:feeling hopeless, hearing voices CAH Mood: depressed Affect: blunted SI:passive HI:none VH/AH:[facility] teling her to hurt herself. Delusions:none Insight/judgment:fair x 2. Memory/cog: alert, oriented x 3. Diagnostics Vital Signs (24Hr): Vital Signs - 24 hr 03/23/21 08:55 Temperature 98.7 F Pulse Rate 97 Blood Pressure 132/62 BMI result Body Mass Index 36.3 Labs Results: 03/19/21 20:05 03/19/21 20:05 Medications Medications Current Medications Acetaminophen (Acetaminophen 325 Mg Tablet) 487.5 mg PO Q8H PRN PRN Reason: Headache Last Admin: 03/19/21 23:46 Dose: 487.5 mg Documented by: Al Hydroxide/Mg Hydroxide (Magnesium Hydrox/Alum Hydrox 30 Ml Oral.Susp) 30 ml PO Q6H PRN PRN Reason: Heartburn/Nausea Escitalopram Oxalate (Escitalopram Oxalate 10 Mg Tablet) 10 mg PO DAILY [facility] Last Admin: 03/23/21 09:21 Dose: 10 mg Documented by: Gabapentin (Gabapentin 100 Mg Capsule) 200 mg PO TID [facility] Last Admin: 03/23/21 15:06 Dose: 200 mg Documented by: Hydroxyzine HCl (Hydroxyzine Hcl 25 Mg Tablet) 25 mg PO DAILY [facility] Last Admin: 03/23/21 09:21 Dose: 25 mg Documented by: Hydroxyzine HCl (Hydroxyzine Hcl 25 Mg Tablet) 25 mg PO BEDTIME PRN PRN Reason: Anxiety [place] Carbonate ([place] Carbonate 300 Mg Tablet) 150 mg PO BID [facility] Last Admin: 03/23/21 09:20 Dose: 150 mg Documented by: Lorazepam (Lorazepam 1 Mg Tablet) 1 mg PO BEDTIME [facility] Last Admin: 03/22/21 20:14 Dose: 1 mg Documented by: Magnesium Hydroxide (Milk Of Magnesia 30 Ml Oral.Susp) 30 ml PO DAILY PRN PRN Reason: Constipation Montelukast Sodium (Montelukast Sodium 10 Mg Tablet) 10 mg PO DAILY [facility] Last Admin: 03/23/21 09:20 Dose: 10 mg Documented by: Omeprazole (Omeprazole 20 Mg Capsule.Dr) 20 mg PO DAILY [facility] Last Admin: 03/23/21 09:20 Dose: 20 mg Documented by: Pyridoxine HCl (Pyridoxine Hcl (Vitamin B6) 50 Mg Tablet) 250 mg PO DAILY [facility] Last Admin: 03/23/21 09:21 Dose: 250 mg Documented by: Quetiapine Fumarate (Quetiapine Fumarate 200 Mg Tablet) 200 mg PO BEDTIME [facility] Risperidone (Risperidone 1 Mg Tablet) 1 mg PO BEDTIME [facility] Risperidone (Risperidone 0.5 Mg Tablet) 0.5 mg PO DAILY [facility] Trazodone HCl (Trazodone Hcl 100 Mg Tablet) 100 mg PO BEDTIME PRN PRN Reason: Insomnia Allergies Allergies Allergy/AdvReac Type Severity Reaction Status Date / Time No Known Allergies Allergy Verified 03/19/21 14:53 [No Known Allergies*] Assessment & Plan Assessment & Plan (1) MDD (major depressive disorder), recurrent, severe, with psychosis: Status: Acute Code(s): F33.3 - Major depressive disorder, recurrent, severe with psychotic symptoms Assessment and Plan: Ms. Obregon is a 51 year-old woman with hx of MDD with psychosis, r/o Bipolar Disorder who has had two inpatient psychiatric admission in past year due to depression and suicidal ideation and AH. In the ED utox was negative. Pt agrees to start risperidone, discontinue abilify for voices. Start lithium for severe depression and suicidal thoughts. PLAN 1. Admit to M5, 15 minutes checks 2. continue risperidone 1mg po BID 3. continue lithium 150mg po BID 4. will continue lexapro 10mg po daily 5. Obtain collateral information 6. Aftercare planning. I spent minutes with the patient and/or on the patient floor today, greater than?50% of which was spent counseling/coordinating care. Reason for contiued inpatient stay Substantial Risk for: harm to self and inability to function
[2021-03-23] MEDS: LORazepam 2 MG/ML VIAL IM (13:54)
[2021-03-23 18:00] VITALS: BP 133/79; PULSE 105; TEMP 37.1
[2021-03-23] MEDS: QUEtiapine Fumarate 200 MG TABLET PO (21:12)
[2021-03-23] MEDS: LORazepam 1 MG TABLET PO (21:12)
[2021-03-23] MEDS: traZODone HCL 100 MG TABLET PO (21:12)
[2021-03-24 06:20] VITALS: BP 138/72; PULSE 76; TEMP 36.8
[2021-03-24] MEDS: Escitalopram Oxalate 10 MG TABLET PO (09:28)
[2021-03-24] MEDS: Pyridoxine HCl (Vitamin B6) 50 MG TABLET 250 MG PO (09:28)
[2021-03-24] MEDS: Omeprazole 20 MG CAPSULE.DR PO (09:28)
[2021-03-24] MEDS: Lithium Carbonate 300 MG TABLET 150 MG PO ×2 (09:28→20:05)
[2021-03-24] MEDS: Montelukast Sodium 10 MG TABLET PO (09:28)
[2021-03-24] MEDS: risperiDONE 0.5 MG TABLET PO (09:29)
[2021-03-24] MEDS: hydrOXYzine HCL 25 MG TABLET PO (09:29)
[2021-03-24] MEDS: Gabapentin 100 MG CAPSULE 200 MG PO ×3 (09:29→20:05)
--- NOTE | 2021-03-24 10:15 | HO.PSYCHPN ---
Subjective Subjective Date of Service: 03/24/21 Reason For Visit: HALLUCINATIONS,ANXIETY Subjective Notes: Conditional Voluntary Interim History: Pt reports some improvement in mood in that she reports feeling less depressed. She reports decreased AH, denies CAH. She denies any plan or intent to hurt herself. She has been visible in the unit, however, not interacting much with peers. Her affect continues to present as constricted, poor eye contact as pt reports feeling better. She reports worrying about her children, did not elaborate in what way, somewhat spacey. No behavioral concerns. VS- stable reports less dizziness without clonidine. reports constipation, no BM since admission. will add miralax. Medication Compliance: Yes Side effects from medications: No Review of Systems Review of Systems Constitutional : No Fever, No Chills ENT/Mouth : No Ear Pain, No Nasal Congestion, No sore throat Eyes: No Eye Pain, No Swelling, No Redness Cardiovascular : No Chest Pain, No SOB Respiratory : No Cough, No Sputum, No Dyspnea Gastrointestinal : No Nausea, No Vomiting, No Diarrhea, No Hematochezia, No Melena Genitourinary : No Dysuria, No Urinary Frequency, No Hematuria Musculoskeletal : No Myalgias Skin : No Skin Lesions, No rash Neuro : No Weakness, No Numbness, No Paresthesias, No Dizziness, No Headache Psych : positive Anxiety, positive Depression, positive SI no HI Heme/Lymph: No Lymphadenopathy Endocrine : No Polyuria, No Polydipsia All other systems reviewed and are negative Mental Status Exam Mental Status Exam Narrative: Appearance: casually groomed, fair hygiene in NAD Behavior:cooperative, minimal eye contact psychomotor:some retardation noted Speech:clear, delayed response rate/rhythm/volume, spontaneous Thought process:linear, poverty of thought Thought content:feeling hopeless, hearing voices CAH Mood: depressed Affect: blunted SI:passive HI:none VH/AH:CAH teling her to hurt herself. Delusions:none Insight/judgment:fair x 2. Memory/cog: alert, oriented x 3. Diagnostics Vital Signs (24Hr): Vital Signs - 24 hr 03/23/21 18:00 03/24/21 06:20 Temperature 98.7 F 98.2 F Pulse Rate 105 H 76 Blood Pressure 133/79 138/72 BMI result Body Mass Index 36.3 Labs Results: 03/19/21 20:05 03/19/21 20:05 Medications Medications Current Medications Acetaminophen (Acetaminophen 325 Mg Tablet) 487.5 mg PO Q8H PRN PRN Reason: Headache Last Admin: 03/19/21 23:46 Dose: 487.5 mg Documented by: Al Hydroxide/Mg Hydroxide (Magnesium Hydrox/Alum Hydrox 30 Ml Oral.Susp) 30 ml PO Q6H PRN PRN Reason: Heartburn/Nausea Escitalopram Oxalate (Escitalopram Oxalate 10 Mg Tablet) 10 mg PO DAILY [facility] Last Admin: 03/24/21 09:28 Dose: 10 mg Documented by: Gabapentin (Gabapentin 100 Mg Capsule) 200 mg PO TID [facility] Last Admin: 03/24/21 09:29 Dose: 200 mg Documented by: Hydroxyzine HCl (Hydroxyzine Hcl 25 Mg Tablet) 25 mg PO DAILY [facility] Last Admin: 03/24/21 09:29 Dose: 25 mg Documented by: Hydroxyzine HCl (Hydroxyzine Hcl 25 Mg Tablet) 25 mg PO BEDTIME PRN PRN Reason: Anxiety [place] Carbonate ([place] Carbonate 300 Mg Tablet) 150 mg PO BID [facility] Last Admin: 03/24/21 09:28 Dose: 150 mg Documented by: Lorazepam (Lorazepam 1 Mg Tablet) 1 mg PO BEDTIME [facility] Last Admin: 03/23/21 21:12 Dose: 1 mg Documented by: Magnesium Hydroxide (Milk Of Magnesia 30 Ml Oral.Susp) 30 ml PO DAILY PRN PRN Reason: Constipation Montelukast Sodium (Montelukast Sodium 10 Mg Tablet) 10 mg PO DAILY [facility] Last Admin: 03/24/21 09:28 Dose: 10 mg Documented by: Omeprazole (Omeprazole 20 Mg Capsule.Dr) 20 mg PO DAILY [facility] Last Admin: 03/24/21 09:28 Dose: 20 mg Documented by: Pyridoxine HCl (Pyridoxine Hcl (Vitamin B6) 50 Mg Tablet) 250 mg PO DAILY [facility] Last Admin: 03/24/21 09:28 Dose: 250 mg Documented by: Quetiapine Fumarate (Quetiapine Fumarate 200 Mg Tablet) 200 mg PO BEDTIME [facility] Last Admin: 03/23/21 21:12 Dose: 200 mg Documented by: Risperidone (Risperidone 1 Mg Tablet) 1 mg PO BEDTIME [facility] Last Admin: 03/23/21 21:13 Dose: 1 mg Documented by: Risperidone (Risperidone 0.5 Mg Tablet) 0.5 mg PO DAILY [facility] Last Admin: 03/24/21 09:29 Dose: 0.5 mg Documented by: Trazodone HCl (Trazodone Hcl 100 Mg Tablet) 100 mg PO BEDTIME PRN PRN Reason: Insomnia Last Admin: 03/23/21 21:12 Dose: 100 mg Documented by: Allergies Allergies Allergy/AdvReac Type Severity Reaction Status Date / Time No Known Allergies Allergy Verified 03/19/21 14:53 [No Known Allergies*] Assessment & Plan Assessment & Plan (1) MDD (major depressive disorder), recurrent, severe, with psychosis: Status: Acute Code(s): F33.3 - Major depressive disorder, recurrent, severe with psychotic symptoms Assessment and Plan: Ms. Obregon is a 51 year-old woman with hx of MDD with psychosis, r/o Bipolar Disorder who has had two inpatient psychiatric admission in past year due to depression and suicidal ideation and AH. In the ED utox was negative. Pt agrees to start risperidone, discontinue abilify for voices. Start lithium for severe depression and suicidal thoughts. PLAN 1. Admit to M5, 15 minutes checks 2. continue risperidone 1mg po BID 3. continue lithium 150mg po BID 4. will continue lexapro 10mg po daily- may consider SNRI to brighten mood. with caution as worried about worsening psychosis and question if dx may be more Bipolar. 5. Obtain collateral information 6. Aftercare planning. I spent _25 minutes with the patient and/or on the patient floor today, greater than?50% of which was spent counseling/coordinating care. Reason for contiued inpatient stay Substantial Risk for: harm to self and inability to function
[2021-03-24] MEDS: polyethylene glycoL 3350 17 GM POWD.PACK PO (11:55)
[2021-03-24 18:00] VITALS: BP 155/91; PULSE 109; TEMP 37
[2021-03-24] MEDS: QUEtiapine Fumarate 200 MG TABLET PO (20:05)
[2021-03-24] MEDS: LORazepam 1 MG TABLET PO (20:05)
[2021-03-24] MEDS: risperiDONE 1 MG TABLET PO (20:05)
[2021-03-24] MEDS: amLODIPine Besylate 5 MG TABLET PO (21:29)
[2021-03-24] MEDS: traZODone HCL 100 MG TABLET PO (21:32)
[2021-03-25 06:00] VITALS: BP 127/69; PULSE 98; RESP 18; TEMP 36.6; O2SAT 98
[2021-03-25 07:20] LABS: Lithium 0.21 mmol/L (0.60-1.20)
[2021-03-25] MEDS: Pyridoxine HCl (Vitamin B6) 50 MG TABLET 250 MG PO (09:06)
[2021-03-25] MEDS: Gabapentin 100 MG CAPSULE 200 MG PO ×3 (09:06→19:57)
[2021-03-25] MEDS: hydrOXYzine HCL 25 MG TABLET PO (09:06)
[2021-03-25] MEDS: risperiDONE 0.5 MG TABLET PO (09:07)
[2021-03-25] MEDS: Lithium Carbonate 300 MG TABLET 150 MG PO ×2 (09:07→19:57)
[2021-03-25] MEDS: Escitalopram Oxalate 10 MG TABLET PO (09:07)
[2021-03-25] MEDS: Omeprazole 20 MG CAPSULE.DR PO (09:08)
[2021-03-25] MEDS: amLODIPine Besylate 5 MG TABLET PO (09:08)
[2021-03-25] MEDS: Montelukast Sodium 10 MG TABLET PO (09:08)
[2021-03-25] MEDS: polyethylene glycoL 3350 17 GM POWD.PACK PO (09:08)
--- NOTE | 2021-03-25 12:49 | P.PNPSI_ITS ---
Subjective Subjective Date of Service: 03/25/21 Reason For Visit: HALLUCINATIONS,ANXIETY Subjective Notes: Conditional Voluntary Interim History: Pt continues to report some improvement in mood in that she reports feeling less depressed. She reports decreased AH, denies CAH. She denies any plan or intent to hurt herself. She has been visible in the unit, however, not interacting much with peers. Her affect is slightly brighter today, better eye contact as pt reports feeling better. She reports worrying about her children, did not elaborate in what way, somewhat spacey. No behavioral concerns. VS- stable reports less dizziness without clonidine. reports constipation, no BM since admission. will add miralax. Review of Systems Review of Systems Constitutional : No Fever, No Chills ENT/Mouth : No Ear Pain, No Nasal Congestion, No sore throat Eyes: No Eye Pain, No Swelling, No Redness Cardiovascular : No Chest Pain, No SOB Respiratory : No Cough, No Sputum, No Dyspnea Gastrointestinal : No Nausea, No Vomiting, No Diarrhea, No Hematochezia, No Melena Genitourinary : No Dysuria, No Urinary Frequency, No Hematuria Musculoskeletal : No Myalgias Skin : No Skin Lesions, No rash Neuro : No Weakness, No Numbness, No Paresthesias, No Dizziness, No Headache Psych : positive Anxiety, positive Depression, positive SI no HI Heme/Lymph: No Lymphadenopathy Endocrine : No Polyuria, No Polydipsia All other systems reviewed and are negative Mental Status Exam Mental Status Exam Narrative: Appearance: casually groomed, fair hygiene in NAD Behavior:cooperative, minimal eye contact psychomotor:some retardation noted Speech:clear, delayed response rate/rhythm/volume, spontaneous Thought process:linear, poverty of thought Thought content:feeling hopeless, hearing voices CAH Mood: depressed Affect: blunted SI:passive HI:none VH/AH:CAH teling her to hurt herself. Delusions:none Insight/judgment:fair x 2. Memory/cog: alert, oriented x 3. Diagnostics Vital Signs (24Hr): Vital Signs - 24 hr 03/24/21 18:00 03/25/21 06:00 Temperature 98.6 F 97.8 F Pulse Rate 109 H 98 Respiratory Rate 18 Blood Pressure 155/91 H 127/69 Pulse Oximetry 98 BMI result Body Mass Index 36.3 Labs Results: 03/19/21 20:05 03/19/21 20:05 Labs: Laboratory Results - last 48 hr 03/25/21 06:52 [place] 0.21 L Medications Medications Current Medications Acetaminophen (Acetaminophen 325 Mg Tablet) 487.5 mg PO Q8H PRN PRN Reason: Headache Last Admin: 03/19/21 23:46 Dose: 487.5 mg Documented by: Al Hydroxide/Mg Hydroxide (Magnesium Hydrox/Alum Hydrox 30 Ml Oral.Susp) 30 ml PO Q6H PRN PRN Reason: Heartburn/Nausea Amlodipine Besylate (Amlodipine Besylate 5 Mg Tablet) 5 mg PO DAILY [facility]; Protocol Last Admin: 03/25/21 09:08 Dose: 5 mg Documented by: Escitalopram Oxalate (Escitalopram Oxalate 10 Mg Tablet) 10 mg PO DAILY [facility] Last Admin: 03/25/21 09:07 Dose: 10 mg Documented by: Gabapentin (Gabapentin 100 Mg Capsule) 200 mg PO TID [facility] Last Admin: 03/25/21 09:06 Dose: 200 mg Documented by: Hydroxyzine HCl (Hydroxyzine Hcl 25 Mg Tablet) 25 mg PO DAILY [facility] Last Admin: 03/25/21 09:06 Dose: 25 mg Documented by: Hydroxyzine HCl (Hydroxyzine Hcl 25 Mg Tablet) 25 mg PO BEDTIME PRN PRN Reason: Anxiety [place] Carbonate ([place] Carbonate 300 Mg Tablet) 150 mg PO BID [facility] Last Admin: 03/25/21 09:07 Dose: 150 mg Documented by: Lorazepam (Lorazepam 1 Mg Tablet) 1 mg PO BEDTIME [facility] Last Admin: 03/24/21 20:05 Dose: 1 mg Documented by: Magnesium Hydroxide (Milk Of Magnesia 30 Ml Oral.Susp) 30 ml PO DAILY PRN PRN Reason: Constipation Montelukast Sodium (Montelukast Sodium 10 Mg Tablet) 10 mg PO DAILY [facility] Last Admin: 03/25/21 09:08 Dose: 10 mg Documented by: Omeprazole (Omeprazole 20 Mg Capsule.Dr) 20 mg PO DAILY [facility] Last Admin: 03/25/21 09:08 Dose: 20 mg Documented by: Polyethylene Glycol (Polyethylene Glycol 3350 17 Gm Powd.Pack) 17 gm PO DAILY [facility] Last Admin: 03/25/21 09:08 Dose: 17 gm Documented by: Pyridoxine HCl (Pyridoxine Hcl (Vitamin B6) 50 Mg Tablet) 250 mg PO DAILY [facility] Last Admin: 03/25/21 09:06 Dose: 250 mg Documented by: Quetiapine Fumarate (Quetiapine Fumarate 200 Mg Tablet) 200 mg PO BEDTIME [facility] Last Admin: 03/24/21 20:05 Dose: 200 mg Documented by: Risperidone (Risperidone 1 Mg Tablet) 1 mg PO BEDTIME [facility] Last Admin: 03/24/21 20:05 Dose: 1 mg Documented by: Risperidone (Risperidone 0.5 Mg Tablet) 0.5 mg PO DAILY [facility] Last Admin: 03/25/21 09:07 Dose: 0.5 mg Documented by: Trazodone HCl (Trazodone Hcl 100 Mg Tablet) 100 mg PO BEDTIME PRN PRN Reason: Insomnia Last Admin: 03/24/21 21:32 Dose: 100 mg Documented by: Allergies Allergies Allergy/AdvReac Type Severity Reaction Status Date / Time No Known Allergies Allergy Verified 03/19/21 14:53 [No Known Allergies*] Assessment & Plan Assessment & Plan (1) MDD (major depressive disorder), recurrent, severe, with psychosis: Status: Acute Code(s): F33.3 - Major depressive disorder, recurrent, severe with psychotic symptoms Assessment and Plan: Ms. Obregon is a 51 year-old woman with hx of MDD with psychosis, r/o Bipolar Disorder who has had two inpatient psychiatric admission in past year due to depression and suicidal ideation and AH. In the ED utox was negative. Pt agrees to start risperidone, discontinue abilify for voices. Start lithium for severe depression and suicidal thoughts. PLAN 1. Admit to M5, 15 minutes checks 2. continue risperidone 1mg po BID 3. continue lithium 150mg po BID 4. will continue lexapro 10mg po daily- may consider SNRI to brighten mood. with caution as worried about worsening psychosis and question if dx may be more Bipolar. 5. Obtain collateral information 6. Aftercare planning. I spent minutes with the patient and/or on the patient floor today, greater than?50% of which was spent counseling/coordinating care. Reason for contiued inpatient stay Substantial Risk for: harm to self and inability to function
[2021-03-25 18:00] VITALS: BP 177/89; PULSE 101
[2021-03-25] MEDS: QUEtiapine Fumarate 200 MG TABLET PO (19:57)
[2021-03-25] MEDS: LORazepam 1 MG TABLET PO (19:57)
[2021-03-25] MEDS: traZODone HCL 100 MG TABLET PO (19:57)
[2021-03-25] MEDS: risperiDONE 1 MG TABLET PO (19:57)
[2021-03-26 06:00] VITALS: BP 128/78; PULSE 122; RESP 14; O2SAT 97
[2021-03-26] MEDS: polyethylene glycoL 3350 17 GM POWD.PACK PO (09:08)
[2021-03-26] MEDS: hydrOXYzine HCL 25 MG TABLET PO (09:09)
[2021-03-26] MEDS: Pyridoxine HCl (Vitamin B6) 50 MG TABLET 250 MG PO (09:09)
[2021-03-26] MEDS: Gabapentin 100 MG CAPSULE 200 MG PO ×3 (09:09→20:14)
[2021-03-26] MEDS: Lithium Carbonate 300 MG TABLET 150 MG PO (09:09)
[2021-03-26] MEDS: Escitalopram Oxalate 10 MG TABLET PO (09:09)
[2021-03-26] MEDS: amLODIPine Besylate 5 MG TABLET PO (09:10)
[2021-03-26] MEDS: Omeprazole 20 MG CAPSULE.DR PO (09:10)
[2021-03-26] MEDS: Montelukast Sodium 10 MG TABLET PO (09:10)
[2021-03-26] MEDS: risperiDONE 0.5 MG TABLET PO (09:10)
--- NOTE | 2021-03-26 10:07 | P.PNPSI_ITS ---
Subjective Subjective Date of Service: 03/26/21 Reason For Visit: HALLUCINATIONS,ANXIETY Interim History: Pt continues to report some improvement in mood in that she reports feeling less depressed- although affect is somewhat constricted. She reports decreased AH, denies CAH. She denies any plan or intent to hurt herself. She has been visible in the unit, however, not interacting much with peers. She had agreed to stay few more day while we adjust lithium but later reported she wants to go home soon. No behavioral concerns. VS- stable reports less dizziness without clonidine. reports constipation, no BM since admission. will add miralax. Review of Systems Review of Systems Constitutional : No Fever, No Chills ENT/Mouth : No Ear Pain, No Nasal Congestion, No sore throat Eyes: No Eye Pain, No Swelling, No Redness Cardiovascular : No Chest Pain, No SOB Respiratory : No Cough, No Sputum, No Dyspnea Gastrointestinal : No Nausea, No Vomiting, No Diarrhea, No Hematochezia, No Melena Genitourinary : No Dysuria, No Urinary Frequency, No Hematuria Musculoskeletal : No Myalgias Skin : No Skin Lesions, No rash Neuro : No Weakness, No Numbness, No Paresthesias, No Dizziness, No Headache Psych : positive Anxiety, positive Depression, positive SI no HI Heme/Lymph: No Lymphadenopathy Endocrine : No Polyuria, No Polydipsia All other systems reviewed and are negative Mental Status Exam Mental Status Exam Narrative: Appearance: casually groomed, fair hygiene in NAD Behavior:cooperative, minimal eye contact psychomotor:some retardation noted Speech:clear, delayed response rate/rhythm/volume, spontaneous Thought process:linear, poverty of thought Thought content:feeling hopeless, hearing voices CAH Mood: depressed Affect: blunted SI:passive HI:none VH/AH:CAH teling her to hurt herself. Delusions:none Insight/judgment:fair x 2. Memory/cog: alert, oriented x 3. Diagnostics Vital Signs (24Hr): Vital Signs - 24 hr 03/26/21 16:47 03/27/21 06:00 03/27/21 08:53 Temperature 97 F Pulse Rate 96 95 103 H Respiratory Rate 18 Blood Pressure 158/94 H 127/59 L 110/69 Pulse Oximetry 94 BMI result Body Mass Index 36.3 Labs Results: 03/19/21 20:05 03/19/21 20:05 Medications Medications Current Medications Acetaminophen (Acetaminophen 325 Mg Tablet) 487.5 mg PO Q8H PRN PRN Reason: Headache Last Admin: 03/19/21 23:46 Dose: 487.5 mg Documented by: Al Hydroxide/Mg Hydroxide (Magnesium Hydrox/Alum Hydrox 30 Ml Oral.Susp) 30 ml PO Q6H PRN PRN Reason: Heartburn/Nausea Amlodipine Besylate (Amlodipine Besylate 5 Mg Tablet) 5 mg PO DAILY [facility]; Protocol Last Admin: 03/27/21 08:54 Dose: 5 mg Documented by: Escitalopram Oxalate (Escitalopram Oxalate 10 Mg Tablet) 10 mg PO DAILY [facility] Last Admin: 03/27/21 08:54 Dose: 10 mg Documented by: Gabapentin (Gabapentin 100 Mg Capsule) 200 mg PO TID [facility] Last Admin: 03/27/21 08:54 Dose: 200 mg Documented by: Hydroxyzine HCl (Hydroxyzine Hcl 25 Mg Tablet) 25 mg PO Q6H PRN PRN Reason: Anxiety/[place] Carbonate ([place] Carbonate 300 Mg Tablet) 300 mg PO BID [facility] Last Admin: 03/27/21 08:54 Dose: 300 mg Documented by: Lorazepam (Lorazepam 1 Mg Tablet) 1 mg PO BEDTIME [facility] Last Admin: 03/26/21 20:14 Dose: 1 mg Documented by: Magnesium Hydroxide (Milk Of Magnesia 30 Ml Oral.Susp) 30 ml PO DAILY PRN PRN Reason: Constipation Montelukast Sodium (Montelukast Sodium 10 Mg Tablet) 10 mg PO DAILY [facility] Last Admin: 03/27/21 08:55 Dose: 10 mg Documented by: Omeprazole (Omeprazole 20 Mg Capsule.Dr) 20 mg PO DAILY [facility] Last Admin: 03/27/21 08:55 Dose: 20 mg Documented by: Polyethylene Glycol (Polyethylene Glycol 3350 17 Gm Powd.Pack) 17 gm PO DAILY [facility] Last Admin: 03/26/21 09:08 Dose: 17 gm Documented by: Pyridoxine HCl (Pyridoxine Hcl (Vitamin B6) 50 Mg Tablet) 250 mg PO DAILY [facility] Last Admin: 03/27/21 08:54 Dose: 250 mg Documented by: Risperidone (Risperidone 1 Mg Tablet) 1 mg PO BID [facility] Last Admin: 03/27/21 08:55 Dose: 1 mg Documented by: Trazodone HCl (Trazodone Hcl 100 Mg Tablet) 100 mg PO BEDTIME [facility] Last Admin: 03/26/21 20:14 Dose: 100 mg Documented by: Allergies Allergies Allergy/AdvReac Type Severity Reaction Status Date / Time No Known Allergies Allergy Verified 03/19/21 14:53 [No Known Allergies*] Assessment & Plan Assessment & Plan (1) Bipolar 1 disorder, depressed, moderate: Status: Acute Code(s): F31.32 - Bipolar disorder, current episode depressed, moderate Assessment and Plan: Ms. Obregon is a 51 year-old woman with hx of MDD with psychosis, r/o Bipolar Disorder who has had two inpatient psychiatric admission in past year due to depression and suicidal ideation and AH. In the ED utox was negative. Pt agrees to start risperidone, discontinue abilify for voices. Start lithium for severe depression and suicidal thoughts. PLAN 1. Admit to M5, 15 minutes checks 2. continue risperidone 1mg po BID 3. continue lithium 150mg po BID 4. will continue lexapro 10mg po daily- may consider SNRI to brighten mood. with caution as worried about worsening psychosis and question if dx may be more Bipolar. 5. Obtain collateral information 6. Aftercare planning. I spent minutes with the patient and/or on the patient floor today, greater than?50% of which was spent counseling/coordinating care. Reason for contiued inpatient stay Substantial Risk for: stable for discharge
--- NOTE | 2021-03-26 13:01 | HO.PSYCHPN ---
Subjective Subjective Date of Service: 03/26/21 Reason For Visit: HALLUCINATIONS,ANXIETY Subjective Notes: Conditional Voluntary Interim History: Pt continues to report some improvement in mood in that she reports feeling less depressed- although affect is somewhat constricted. She reports decreased AH, denies CAH. She denies any plan or intent to hurt herself. She has been visible in the unit, however, not interacting much with peers. She had agreed to stay few more day while we adjust lithium but later reported she wants to go home soon. No behavioral concerns. VS- stable reports less dizziness without clonidine. reports constipation, no BM since admission. will add miralax. Review of Systems Review of Systems Constitutional : No Fever, No Chills ENT/Mouth : No Ear Pain, No Nasal Congestion, No sore throat Eyes: No Eye Pain, No Swelling, No Redness Cardiovascular : No Chest Pain, No SOB Respiratory : No Cough, No Sputum, No Dyspnea Gastrointestinal : No Nausea, No Vomiting, No Diarrhea, No Hematochezia, No Melena Genitourinary : No Dysuria, No Urinary Frequency, No Hematuria Musculoskeletal : No Myalgias Skin : No Skin Lesions, No rash Neuro : No Weakness, No Numbness, No Paresthesias, No Dizziness, No Headache Psych : positive Anxiety, positive Depression, positive SI no HI Heme/Lymph: No Lymphadenopathy Endocrine : No Polyuria, No Polydipsia All other systems reviewed and are negative Mental Status Exam Mental Status Exam Narrative: Appearance: casually groomed, fair hygiene in NAD Behavior:cooperative, minimal eye contact psychomotor:some retardation noted Speech:clear, delayed response rate/rhythm/volume, spontaneous Thought process:linear, poverty of thought Thought content:feeling hopeless, hearing voices CAH Mood: depressed Affect: blunted SI:passive HI:none VH/AH:CAH teling her to hurt herself. Delusions:none Insight/judgment:fair x 2. Memory/cog: alert, oriented x 3. Diagnostics Vital Signs (24Hr): Vital Signs - 24 hr 03/25/21 18:00 03/26/21 06:00 Pulse Rate 101 H 122 H Respiratory Rate 14 Blood Pressure 177/89 H 128/78 Pulse Oximetry 97 BMI result Body Mass Index 36.3 Labs Results: 03/19/21 20:05 03/19/21 20:05 Labs: Laboratory Results - last 48 hr 03/25/21 06:52 [place] 0.21 L Medications Medications Current Medications Acetaminophen (Acetaminophen 325 Mg Tablet) 487.5 mg PO Q8H PRN PRN Reason: Headache Last Admin: 03/19/21 23:46 Dose: 487.5 mg Documented by: Al Hydroxide/Mg Hydroxide (Magnesium Hydrox/Alum Hydrox 30 Ml Oral.Susp) 30 ml PO Q6H PRN PRN Reason: Heartburn/Nausea Amlodipine Besylate (Amlodipine Besylate 5 Mg Tablet) 5 mg PO DAILY [facility]; Protocol Last Admin: 03/26/21 09:10 Dose: 5 mg Documented by: Escitalopram Oxalate (Escitalopram Oxalate 10 Mg Tablet) 10 mg PO DAILY [facility] Last Admin: 03/26/21 09:09 Dose: 10 mg Documented by: Gabapentin (Gabapentin 100 Mg Capsule) 200 mg PO TID [facility] Last Admin: 03/26/21 14:45 Dose: 200 mg Documented by: Hydroxyzine HCl (Hydroxyzine Hcl 25 Mg Tablet) 25 mg PO DAILY [facility] Last Admin: 03/26/21 09:09 Dose: 25 mg Documented by: Hydroxyzine HCl (Hydroxyzine Hcl 25 Mg Tablet) 25 mg PO BEDTIME PRN PRN Reason: Anxiety [place] Carbonate ([place] Carbonate 300 Mg Tablet) 150 mg PO BID [facility] Last Admin: 03/26/21 09:09 Dose: 150 mg Documented by: Lorazepam (Lorazepam 1 Mg Tablet) 1 mg PO BEDTIME [facility] Last Admin: 03/25/21 19:57 Dose: 1 mg Documented by: Magnesium Hydroxide (Milk Of Magnesia 30 Ml Oral.Susp) 30 ml PO DAILY PRN PRN Reason: Constipation Montelukast Sodium (Montelukast Sodium 10 Mg Tablet) 10 mg PO DAILY [facility] Last Admin: 03/26/21 09:10 Dose: 10 mg Documented by: Omeprazole (Omeprazole 20 Mg Capsule.Dr) 20 mg PO DAILY [facility] Last Admin: 03/26/21 09:10 Dose: 20 mg Documented by: Polyethylene Glycol (Polyethylene Glycol 3350 17 Gm Powd.Pack) 17 gm PO DAILY [facility] Last Admin: 03/26/21 09:08 Dose: 17 gm Documented by: Pyridoxine HCl (Pyridoxine Hcl (Vitamin B6) 50 Mg Tablet) 250 mg PO DAILY [facility] Last Admin: 03/26/21 09:09 Dose: 250 mg Documented by: Quetiapine Fumarate (Quetiapine Fumarate 200 Mg Tablet) 200 mg PO BEDTIME [facility] Last Admin: 03/25/21 19:57 Dose: 200 mg Documented by: Risperidone (Risperidone 1 Mg Tablet) 1 mg PO BEDTIME [facility] Last Admin: 03/25/21 19:57 Dose: 1 mg Documented by: Risperidone (Risperidone 0.5 Mg Tablet) 0.5 mg PO DAILY [facility] Last Admin: 03/26/21 09:10 Dose: 0.5 mg Documented by: Trazodone HCl (Trazodone Hcl 100 Mg Tablet) 100 mg PO BEDTIME PRN PRN Reason: Insomnia Last Admin: 03/25/21 19:57 Dose: 100 mg Documented by: Allergies Allergies Allergy/AdvReac Type Severity Reaction Status Date / Time No Known Allergies Allergy Verified 03/19/21 14:53 [No Known Allergies*] Assessment & Plan Assessment & Plan (1) MDD (major depressive disorder), recurrent, severe, with psychosis: Status: Acute Code(s): F33.3 - Major depressive disorder, recurrent, severe with psychotic symptoms Assessment and Plan: Ms. Obregon is a 51 year-old woman with hx of MDD with psychosis, r/o Bipolar Disorder who has had two inpatient psychiatric admission in past year due to depression and suicidal ideation and AH. In the ED utox was negative. Pt agrees to start risperidone, discontinue abilify for voices. Start lithium for severe depression and suicidal thoughts. PLAN 1. Admit to M5, 15 minutes checks 2. continue risperidone 1mg po BID 3. continue lithium 150mg po BID 4. will continue lexapro 10mg po daily- may consider SNRI to brighten mood. with caution as worried about worsening psychosis and question if dx may be more Bipolar. 5. Obtain collateral information 6. Aftercare planning. I spent minutes with the patient and/or on the patient floor today, greater than?50% of which was spent counseling/coordinating care. Reason for contiued inpatient stay Substantial Risk for: harm to self and inability to function
[2021-03-26 16:47] VITALS: BP 158/94; PULSE 96
[2021-03-26] MEDS: risperiDONE 1 MG TABLET PO (20:14)
[2021-03-26] MEDS: LORazepam 1 MG TABLET PO (20:14)
[2021-03-26] MEDS: Lithium Carbonate 300 MG TABLET PO (20:14)
[2021-03-26] MEDS: traZODone HCL 100 MG TABLET PO (20:14)
[2021-03-27 06:00] VITALS: BP 127/59; PULSE 95; RESP 18; TEMP 36.1; O2SAT 94
[2021-03-27 08:53] VITALS: BP 110/69; PULSE 103
[2021-03-27] MEDS: Escitalopram Oxalate 10 MG TABLET PO (08:54)
[2021-03-27] MEDS: Lithium Carbonate 300 MG TABLET PO (08:54)
[2021-03-27] MEDS: Gabapentin 100 MG CAPSULE 200 MG PO (08:54)
[2021-03-27] MEDS: amLODIPine Besylate 5 MG TABLET PO (08:54)
[2021-03-27] MEDS: Pyridoxine HCl (Vitamin B6) 50 MG TABLET 250 MG PO (08:54)
[2021-03-27] MEDS: Montelukast Sodium 10 MG TABLET PO (08:55)
[2021-03-27] MEDS: risperiDONE 1 MG TABLET PO (08:55)
[2021-03-27] MEDS: Omeprazole 20 MG CAPSULE.DR PO (08:55)
--- NOTE | 2021-03-27 10:09 | P.DS_ITS ---
DS: Providers Provider Date of Service: 03/27/21 Date of admission: 03/20/21 12:28 Primary care physician: Leila Avery NP DS: Diagnosis Discharge Diagnosis (1) Bipolar 1 disorder, depressed, moderate: Status: Acute DS: Medications Discharge Medications Home Medications: Home Medications Medication Instructions Recorded Confirmed aripiprazole 5 mg tablet 5 mg PO DAILY 02/21/21 03/19/21 quetiapine 400 mg tablet 400 mg PO BEDTIME 02/21/21 03/19/21 acetaminophen 500 mg tablet 500 mg PO Q8H PRN 03/19/21 03/19/21 clonidine HCl 0.1 mg tablet 1 tab PO TID 03/19/21 03/19/21 escitalopram oxalate 10 mg tablet 1 tab PO DAILY 03/19/21 03/19/21 gabapentin 100 mg capsule 200 mg PO TID 03/19/21 03/19/21 hydroxyzine HCl 25 mg tablet 1 tab PO DAILY 03/19/21 03/19/21 phentermine 30 mg capsule 1 cap PO BEDTIME 03/19/21 03/19/21 pyridoxine (vitamin B6) 250 mg 250 mg PO DAILY 03/19/21 03/19/21 tablet (Vitamin B-6) Previous Rx's Medication Instructions Recorded omeprazole 20 mg capsule,delayed 20 mg PO QAM #90 cap 03/02/21 release montelukast 10 mg tablet 10 mg PO DAILY #90 tab 03/26/21 Mental Status Exam Mental Status Exam Narrative: Appearance: casually groomed, fair hygiene in NAD Behavior:cooperative, minimal eye contact psychomotor:no agitation or retardation noted Speech:clear, less delayed response rate/rhythm/volume, spontaneous Thought process:linear, poverty of thought Thought content:feeling hopeless, hearing voices CAH Mood: better Affect: brighter, still somewhat constricted. SI:denies HI:none VH/AH:denies Delusions:none Insight/judgment:fair x 2. Memory/cog: alert, oriented x 3. Data Data Completed and Pending Completed studies during hospitalization [Text1]: 03/21/21 03/21/21 03/21/21 07:56 07:56 07:56 Estimat Average Glucose 143 Hemoglobin A1c % 6.6 Triglycerides 95 Cholesterol 233 LDL Cholesterol, Calc 177 HDL Cholesterol 37 Vitamin B12 777 Folate 15.1 TSH 1.17 [place] 03/25/21 06:52 Estimat Average Glucose Hemoglobin A1c % Triglycerides Cholesterol LDL Cholesterol, Calc HDL Cholesterol Vitamin B12 Folate TSH [place] 0.21 L DS: Summary Hospital Course Hospital Course: Subjective Notes: Nelson Warning, Conditional Voluntary and 3 Day Narrative: Mrs. Obregon is a 51 year-old woman with hx of MDD with psychosis who was evaluated by [facility] crisis after her PCP completed PHQ-9 that showed severe depression with suicidal thoughts. In the ED, her utox is negative. On the unit, pt reports struggling with depression for about 2 years. She reports depressed mood worsening for the past years. She endorses anhedonia, hopeless/helpless, passive suicidal ideation. She reports seeing shadows, hearing several voices, males and females telling her to hurt herself. She reports voices are worse when she is depressed but they are becoming more intense and frequent recently. She reports living with her son. Pt reports poor sleep for several weeks. Past Psychiatric History: Inpatient: [facility] 07/2020 after intentional OD.? OP: therapist at [facility] but does not have prescriber. Suicide attempts: OD 07/2020 Past medication trials: abilify, lexapro, seroquel Medical Evaluation Reviewed: Yes HOSPITAL COURSE On the unit, pt was admitted on a CV and placed on 15 minutes checks for safety. Pt reported depressed mood, anhedonia, hearing voices. Her affect was constricted and flat. She reported poor sleep. We discussed risks, benefits and alternative treatment options. Pt was started on lithium. She was also started on risperidone for voices. Abilify was discontinued due to lack of efficacy. She was continued on lexapro. It is possible that her diagnosis is more consistent with Bipolar Disorder than Unipolar depression. Her affect gradually brighten. She reported less symptoms of depression. She reported feeling more optimistic about her future. Her sleep improved, which was one of her main concerns. She reported no AH. She denied SI/HI. She participated in some groups but was still isolating. Collateral information gathered from her son who reported that pt appeared in much improved condition and denied any safety concerns at time of discharge. Status at Discharge Cognitive/behavioral status at discharge: Pt with slightly brighter affect. Improved sleep. increasingly more future oriented and hopeful about her recovery. She denied SI/HI. She denied AH/VH. No signs of aggression towards self or others. Functional status at discharge: independent ambulation Overall status at discharge: patient is progressing back to baseline Time Spent with Patient Time attestation: Total time spent providing and/or coordinating discharge services: Discharge Plan Discharge Patient Disposition: Home, Self-Care Discharge Diagnosis: Bipolar Disorder type 1, depressed mood. Referrals: [facility] (therapists) Sherrell Cruz [Other] - 03/30/21 12:00 pm (Appointment scheduled for 03/30/21 @ 12 PM with Sherrell Cruz via telehealth (phone)) [facility] (psychiatrist) [Other] - 04/11/21 11:00 am (Initial appointment scheduled with Rosaline mcfadden 04/11/21 @ 11 AM via telehealth (phone) next appt scheduled for 04/25/21 @ 11 AM telehealth.) [facility] referral [Other] - 1 Week (Referral made on 03/26/21. Please call and follow up 3/5 days after discharge to inquire on CSP referral.) [facility] referral [Other] - 3-5 Days (Referral made on 03/26/21, please follow up with PHP 3-5 days post discharge to inquire on intake appointment date and time.) Leila Avery NP [Primary Care Provider] - 04/02/21 3:00 pm (in office) Discharge Medications: New amlodipine 5 mg Tablet 5 mg PO DAILY Qty: 30 0RF Protocol: Hold for SBP< HOLD for SBP < : 90 trazodone 100 mg Tablet 100 mg PO BEDTIME Qty: 30 0RF gabapentin 100 mg Capsule 200 mg PO TID Qty: 90 0RF lithium carbonate 300 mg Tablet 300 mg PO BID Qty: 60 0RF omeprazole 20 mg Capsule,Delayed Release(Dr/Ec) 20 mg PO DAILY Qty: 30 0RF montelukast 10 mg Tablet 10 mg PO DAILY Qty: 30 0RF lorazepam 1 mg Tablet 1 mg PO BEDTIME Qty: 30 0RF risperidone 1 mg Tablet 1 mg PO BID Qty: 60 0RF pyridoxine (vitamin B6) 50 mg Tablet 250 mg PO DAILY Qty: 30 0RF escitalopram oxalate 10 mg Tablet 10 mg PO DAILY Qty: 30 0RF Discontinued omeprazole 20 mg capsule,delayed release(DR/EC) 20 mg PO QAM Qty: 90 1RF montelukast 10 mg tablet 10 mg PO DAILY Qty: 90 1RF clonidine HCl 0.1 mg tablet 1 tab PO TID 0RF phentermine 30 mg capsule 1 cap PO BEDTIME 0RF hydroxyzine HCl 25 mg tablet 1 tab PO DAILY 0RF gabapentin 100 mg capsule 200 mg PO TID 0RF pyridoxine (vitamin B6) [Vitamin B-6] 250 mg tablet 250 mg PO DAILY 0RF escitalopram oxalate 10 mg tablet 1 tab PO DAILY 0RF acetaminophen 500 mg tablet 500 mg PO Q8H PRN (Reason: Headache) 0RF quetiapine 400 mg tablet 400 mg PO BEDTIME 0RF aripiprazole 5 mg tablet 5 mg PO DAILY 0RF No Action phentermine 30 mg capsule 30 mg PO BEDTIME 0RF Discharge Orders: Discharge Order (Routine); Ordered 03/27/21 Ordered By: Ryanne Farmer Diet: advance to usual diet Activity on Discharge: As tolerated Stand Alone Forms: Patient Portal Discharge page, Community Support Care Plan Goals: Maintain mood Less AH/VH No SI/HI Health Concerns: Follow up with PCP Plan of Treatment: 1. Take medications as prescribed 2. Go to nearest ED or call 911 in event of emergency Assessment: Pt with brighter affect, less blunted, less AH. Pt reports decreased depression. Improved sleep. No SI/HI. No signs of aggression towards self or others. Discharge Date/Time: 03/27/21 16:17
== END 2021-03-27 16:17 | disposition home or self-care (01) | DRG 753 ==
LOC: HO.ED 21:33 → HO.PM5 03-20 12:31
PROVIDERS: Clinical Nurse Specialist Psychiatric/Mental Health, Adult; Admitting Provider Psychiatry & Neurology Psychiatry; Emergency Provider Emergency Medicine; PCP Hospitalist; Visit Provider Social Worker
DX: F31.32 Bipolar disorder, current episode depressed, moderate (principal); R45.851 Suicidal ideations; Z20.822 Contact with and (suspected) exposure to COVID-19; Z91.51 Personal history of suicidal behavior; Z79.899 Other long term (current) drug therapy
CPT/HCPCS: 36415; 80048; 80061; 80076; 80178; 80307; 81001; 81025; 82607; 82746; 83036; 84443; 85025; 87635; 93005; 99285; J2060

== ENCOUNTER 2021-04-04 09:17 | Outpatient (RCR) | payer OTHER, SELFPAY ==
--- NOTE | 2021-04-05 11:28 | PC.NURSE ---
Patient showed up to the morning community meeting and notified staff after the meeting that she would not be able to attend today as she has an appointment to get her booster shot today at 11:00. Asked patient if she could rescheduled the appointment for later in the day and she stated she could not as she made the appointment a week ago. Patient also stated her nurse was coming today thus would disrupt group attendance. Staff called patient to set up a reassessment appointment with patient next week. At that time patient reports she has numerous appointments scheduled until mid-April that would interfere with attendance to the program and she wanted to wait until the appointments where done to start. She also wanted to coordinate a different time her VNA could come so she would be able to attend groups. [facility] staff are aware.
== END 2021-04-05 09:45 | disposition home or self-care (01) ==
LOC: HO.PHPA 09:17
PROVIDERS: Visit Provider Psychiatry & Neurology Psychiatry
DX: F32.A Depression, unspecified (principal)
CPT/HCPCS: 90791

== ENCOUNTER 2021-06-21 09:29 | Outpatient (REF) | payer OTHER, SELFPAY ==
--- NOTE | ~2021-06-21 | MM_ITS ---
EXAMINATION: MM SCREENING DIGITAL BREAST TOMOSYNTHESIS, BILATERAL CLINICAL INFORMATION: Screening. Asymptomatic. The lifetime risk of breast cancer based on the Tyrer-Cuzick Model is 7.4%. COMPARISON: Mammography: June 19, 2020 and April 03, 2010 TECHNIQUE: Digital breast tomosynthesis is performed in both the craniocaudal and mediolateral oblique views along with computer-aided detection (CAD). Synthesized 2D images are generated from the tomosynthesis. FINDINGS: The breasts are almost entirely fatty (ACR BI-RADS breast composition Category a). There are no significant masses, abnormal calcifications, or other abnormalities. MM/MM tomosynthesis screening BI IMPRESSION: There are no significant changes from prior study. ASSESSMENT: BI-RADS 1: Negative RECOMMENDATION: Routine annual mammography screening. This patient's information was entered into a reminder system with a target due date for their next mammogram.
== END 2021-06-21 09:30 | disposition home or self-care (01) ==
LOC: HO.MAMMO 09:29
PROVIDERS: PCP Hospitalist; Visit Provider Hospitalist
DX: Z12.31 Encounter for screening mammogram for malignant neoplasm of breast (principal)
CPT/HCPCS: 77063; 77067

== ENCOUNTER → 2022-06-04 08:19 | Outpatient (BNVA) | payer MEDICARE, MEDICAID, SELFPAY | PROVIDERS: PCP Hospitalist; Visit Provider Advanced Practice Midwife | DX: Z01.419 Encounter for gynecological examination (general) (routine) without abnormal findings (principal); R10.2 Pelvic and perineal pain | CPT/HCPCS: 99212 ==

== ENCOUNTER 2022-06-19 15:27 | Outpatient (REF) | payer OTHER, MEDICAID, SELFPAY ==
--- NOTE | ~2022-06-19 | US_ITS ---
EXAMINATION: US PELVIS CLINICAL INFORMATION: Pain COMPARISON: None available. TECHNIQUE: Ultrasound of the pelvis is performed using both transabdominal and transvaginal transducers along with Doppler. Transvaginal imaging is performed due to inadequate visualization transabdominally. FINDINGS: Uterus: Status post hysterectomy. Adnexa: Right ovary is not visualized. No large right adnexal mass. Left ovary measures 2.7 x 1.7 x 1.2 cm. 1.2 x 0.9 x 1.0 cm simple intraovarian cyst. US/US pelvic and transvaginal IMPRESSION: 1. 1.2 cm simple left intraovarian cyst. Recommend follow-up ultrasound in 12 months. 2. Right ovary is not visualized. No large right adnexal mass. 3. Status post hysterectomy.
== END 2022-06-19 15:28 | disposition home or self-care (01) ==
LOC: HO.US 15:27
PROVIDERS: PCP Hospitalist; Visit Provider Advanced Practice Midwife
DX: R10.2 Pelvic and perineal pain (principal)
CPT/HCPCS: 76830; 76856

== ENCOUNTER 2022-06-24 08:44 | Outpatient (REF) | payer OTHER, SELFPAY ==
--- NOTE | ~2022-06-24 | MM_ITS ---
EXAMINATION: MM SCREENING DIGITAL BREAST TOMOSYNTHESIS, BILATERAL CLINICAL INFORMATION: Screening. Asymptomatic. The lifetime risk of breast cancer based on the Tyrer-Cuzick Model is 9%. COMPARISON: Mammography: 06/21/2021, 06/19/2020; outside exam 07/30/2011 ([facility]) TECHNIQUE: Digital breast tomosynthesis is performed in both the craniocaudal and mediolateral oblique views along with computer-aided detection (CAD). Synthesized 2D images are generated from the tomosynthesis. FINDINGS: The breasts are almost entirely fatty (ACR BI-RADS breast composition Category a). Background stromal and fibroglandular densities are stable. There are no significant masses, abnormal calcifications, or other abnormalities. Parenchymal pattern is similar to prior studies. There is no developing density or architectural abnormality. The axilla and skin contours are unremarkable. MM/MM tomosynthesis screening BI IMPRESSION: No mammographic evidence of malignancy. ASSESSMENT: BI-RADS 1: Negative RECOMMENDATION: Routine annual mammography screening. This patient's information was entered into a reminder system with a target due date for their next mammogram.
== END 2022-06-24 08:45 | disposition home or self-care (01) ==
LOC: HO.MAMMO 08:44
PROVIDERS: Visit Provider Hospitalist
DX: Z12.31 Encounter for screening mammogram for malignant neoplasm of breast (principal)
CPT/HCPCS: 77063; 77067

== ENCOUNTER 2022-07-03 09:28 | Outpatient (REF) | payer OTHER, SELFPAY ==
[2022-07-03 10:53] LABS: Hematocrit 41.3 % (37.0-47.0); Hemoglobin 12.8 g/dl (12.0-16.0); Mean Corpuscular Hemoglobin 25.7 pg (27.0-33.0); Mean Corpuscular Volume 82.9 fL (80.0-98.0); Mean Platelet Volume 11.7 fL (9.4-12.3); Platelet Count 264 X10*3/uL (160-400); Red Blood Count 4.98 X10*6/uL (4.20-5.50); White Blood Count 7.8 X10*3/uL (4.8-10.8)
[2022-07-03 11:27] LABS: Alanine Aminotransferase 10 U/L (0-31); Albumin Level 4.2 g/dL (3.5-5.0); Alkaline Phosphatase 80 U/L (39-117); Anion Gap 10 (12-20); Aspartate Amino Transferase 13 U/L (5-31); Bilirubin Total 0.9 mg/dL (0.0-1.0); Blood Urea Nitrogen 16 mg/dL (9-16); Calcium 9.4 mg/dL (8.4-10.2); Carbon Dioxide 29 mmol/L (22-29); Chloride 107 mmol/L (96-108); Cholesterol 253 mg/dL; Estimated Glomerular Filt Rate > 60; Glucose Fasting 100 mg/dL (60-99); HDL Cholesterol 50 mg/dL; LDL Cholesterol Calculated 190 mg/dl; Potassium 4.1 mmol/L (3.3-5.1); Sodium 142 mmol/L (135-145); Triglycerides 68 mg/dL
[2022-07-03 11:44] LABS: TSH reflex Free T4 1.29 uIU/mL (0.32-4.0)
== END 2022-07-03 09:29 | disposition home or self-care (01) ==
LOC: HO.WFDLDS 09:28
PROVIDERS: Visit Provider Hospitalist
DX: Z00.00 Encounter for general adult medical examination without abnormal findings (principal); B35.3 Tinea pedis; G47.8 Other sleep disorders; R73.01 Impaired fasting glucose; D64.9 Anemia, unspecified; E66.9 Obesity, unspecified; R82.90 Unspecified abnormal findings in urine
CPT/HCPCS: 36415; 80053; 80061; 84443; 85027; 87086

== ENCOUNTER 2022-07-03 09:30 | Outpatient (REF) | payer OTHER, SELFPAY | END 2022-07-03 09:31 | disposition home or self-care (01) | LOC: HO.LAB 09:30 | PROVIDERS: Visit Provider Hospitalist | DX: Z13.89 Encounter for screening for other disorder (principal) ==

== ENCOUNTER → 2022-07-18 10:32 | Outpatient (BNVA) | payer OTHER, MEDICAID, SELFPAY | PROVIDERS: PCP Hospitalist; Visit Provider Advanced Practice Midwife | DX: Z71.2 Person consulting for explanation of examination or test findings (principal); N83.209 Unspecified ovarian cyst, unspecified side | CPT/HCPCS: 99212 ==

== ENCOUNTER 2023-12-31 09:26 | Outpatient (AMB) | payer OTHER, MEDICAID, SELFPAY ==
--- NOTE | 2023-12-31 09:30 | MHC.OFFVIS ---
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 She has brought in her results from September regarding her Pap smear, mammogram, and pelvic ultrasound. History of pelvic pain since resolved. She is doing well with concerns: Admits to having hot flashes and trouble sleeping at night, not bothersome during the daytime. Attempting to eat a healthy diet with calcium and vitamin D and stays active with exercise. Currently not sexually active. Denies any vaginal dryness or irritation. History of partial hysterectomy. STI testing offered; she accepts, previously done in September GC chlamydia were negative. Last pap smear; 09/2023-ASCUS positive HPV, copy from [place]. Last mammogram; 09/2023, copy from [place]. Colonoscopy is not UTD. Denies any family history of breast, ovarian or colon cancer. [facility] Medical History (Updated 12/31/23 @ 09:59 by Sherrell Nuñez CNM) Ovarian cyst Screen for STD (sexually transmitted disease) Anxiety Depression History of gastrectomy Surgical History History of sleeve gastrectomy History of hysterectomy, supracervical Family History Father Diabetes Mother Diabetes Heart disease Family/Other FH: mental illness Maternal Aunt Ovarian cancer Social History Household Members: Family Housing: House Alcohol intake: never Patient Tobacco Use Status: Never used Tobacco e-Cigarette/Vaping Use: Never Used Second Hand Smoke Exposure: No service: No Current occupational status: unemployed Current occupational exposures/hazards: No Sexual orientation: Straight/Heterosexual Gender identity: Female Cognitive needs: No Hearing needs: No Vision needs: No Female Reproductive History Menstrual Age of Menarche: 9 Menopause type: surgical Total pregnancies: 5 Full term: 4 Number of Living Children: 3 Date of last pap smear: 02/23/21 (neg pap and hpv) Date of Mammogram: 06/24/22 (Birad 1) Review of Systems Const All systems reviewed & are unremarkable except as noted in HPI and below Reports as per HPI Eyes Reports no additional complaints ENT Reports no additional complaints Card Reports no additional complaints Resp Reports no additional complaints GI Reports as per HPI and Reports no additional complaints Reports as per HPI Musc Reports no additional complaints Skin/Breast Reports as per HPI Neuro Reports no additional complaints Psych Reports no additional complaints Endo Reports no additional complaints Payam/Lymph Reports no additional complaints Aller/Immun Reports no additional complaints Physical Exam Vital Signs: Last Vital Signs BP 116/74 12/31/23 09:31 BMI result Body Mass Index 32.3 Const General: cooperative, healthy appearing, no acute distress, well developed and alert Orientation/consciousness: patient oriented x3 HEENT Head: Yes normal to inspection Eyes General: appearance normal, both eyes and all related structures Neck Neck: Yes normal visual inspection Thyroid: Thyroid normal Chest Chest palpation & inspection: normal inspection of the chest and other (no puckering, dimpling, peau de orange, retraction, discharge, masses) Breast/axilla inspection: normal inspection of the breasts Breast/axilla palpation: normal palpation of the breasts Resp Effort & Inspection: normal respiratory effort GI Inspection: Yes normal to inspection Palpation (GI): Soft to palpation Rectal Exam - Female: deferred General: Yes bladder normal to palpation External Female Exam: normal external appearance and normal appearance of the urethra Speculum Exam - Vagina: normal appearance of the vagina, normal palpation and normal vaginal discharge Speculum Exam - Cervix: normal appearance of the cervix and normal palpation Bimanual exam- vagina & uterus: normal bimanual exam, normal palpation, bladder normal to palpation, normal palpation and uterus absent Bimanual Exam- Adnexa, other: no masses Skin General skin exam: no rashes or lesions noted Rashes: no rashes Neuro General: patient oriented x3 Cognition (Neuro): normal cognition Extrem General: Yes normal to inspection Psych Attitude: cooperative Thought process: Normal thought process present Assessment & Plan Assessment & Plan (1) Encounter for well woman exam with routine gynecological exam: Code(s): Z01.419 - Encounter for gynecological examination (general) (routine) without abnormal findings Category: Medical (2) Hot flashes: Code(s): R23.2 - [place] Category: Medical Plan Discussed: Current recommendations for pap smears per ASCCP guidelines. Schedule colposcopy with Dr. Buchanan. Breast awareness, periodic self breast exams and yearly mammogram. Maintain a healthy lifestyle, well balanced diet including Calcium 1,200 mg and Vitamin D 600 IU daily, and routine exercise. Use of condoms for STI prevention if indicated. Contact the office with any postmenopausal bleeding. Lab work TSH and FSH ordered. Counseled regarding initiation of HRT for hot flashes, use of patch biweekly, risks and benefits in association with breast cancer. Menopause.org information and handout dispensed, she wants to consider all her options and not start HRT at this visit, advised to call when she is ready to discuss if wants to start using estrogen patches. Patient verbalizes understanding and agrees to the plan of care. She was given opportunity to ask questions and all questions were answered to the best of my ability. RTO in 1 year for annual roll skinner exam. This note is constructed using voice recognition software. While every effort has been made to ensure accuracy, sales technician home theater errors may have been included. Orders: Orders Thyroid Stimulating Hormone Today R23.2 - [place] Follicle Stimulating Hormone Today R23.2 - Flushing CT NG by PCR Today Z20.2 - Contact with and (suspected) exposure to infections with a predominantly sexual mode of transmission Coding Level of Care Code Est Pt Prev Care 40-64y(32841) Diagnoses Encounter for well woman exam with routine gynecological exam Z01.419 Hot flashes R23.2
[2023-12-31 09:31] VITALS: BP 116/74; BMI 32.3
== END 2023-12-31 10:34 | disposition home or self-care (01) ==
LOC: HO.HWS 09:26
PROVIDERS: PCP Nurse Practitioner Family; Visit Provider Advanced Practice Midwife
DX: Z91.89 Other specified personal risk factors, not elsewhere classified (principal); R23.2 Flushing
CPT/HCPCS: G0101

== ENCOUNTER 2024-01-15 08:34 | Outpatient (REF) | payer MEDICAID, SELFPAY ==
[2024-01-15 10:03] LABS: Thyroid Stimulating Hormone 1.37 uIU/mL (0.32-4.0)
[2024-01-16 07:59] LABS: Follicle Stimulating Hormone 111.4 mIU/mL
== END 2024-01-15 08:35 | disposition home or self-care (01) ==
LOC: HO.LAB 08:34
PROVIDERS: PCP Nurse Practitioner Family; Visit Provider Advanced Practice Midwife
DX: R23.2 Flushing (principal)
CPT/HCPCS: 36415; 83001; 84443

== ENCOUNTER 2024-02-16 09:25 | Outpatient (AMB) | payer MEDICARE, MEDICAID, SELFPAY ==
--- NOTE | 2024-02-16 09:28 | AM.OFFWIN_ITS ---
Intake Vital Signs 02/16/24 09:38 02/16/24 09:58 Height 5 ft 4 in Weight 201 lb BMI 34.5 BP 162/82 H 160/80 H Blood Pressure Location Lt brachial Lt brachial Position Sitting Sitting Respiration 14 Pulse 75 Pulse Source Pulse Oximeter Pulse Oximetry (%) 100 Oxygen Delivery Method Room Air Intake Visit Reasons: est/sleeping issues/headache Intake Note: Patient complaining of headache, having sleeping issues after running out of meds on Feb 13. 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 Allergies No Known Allergies [No Known Allergies*] Allergy (Verified 02/16/24 09:47) Do you need a note to return to daycare/school/sports/work: No HPI HPI Comments History of Present Illness Details MDD, DANIEL [facility] SKIN FLU 2023 TDAP UTD Plan Refer to [facility] for counseling and med mgmt Refer to GI for first colon Mammo and DEXA ordered along w/ screening labs Derm referral RTO 1 year CPE [facility] Medical History (Updated 02/16/24 @ 09:54 by Kristen Rose, [facility]) Ovarian cyst Screen for STD (sexually transmitted disease) Anxiety Depression History of gastrectomy Surgical History History of sleeve gastrectomy History of hysterectomy, supracervical Family History Father Diabetes Mother Diabetes Heart disease Family/Other FH: mental illness Maternal Aunt Ovarian cancer Social History Household Members: Family Housing: House Alcohol intake: never Patient Tobacco Use Status: Never used Tobacco e-Cigarette/Vaping Use: Never Used Second Hand Smoke Exposure: No service: No Current occupational status: unemployed Current occupational exposures/hazards: No Sexual orientation: Straight/Heterosexual Gender identity: Female Cognitive needs: No Hearing needs: No Vision needs: No Female Reproductive History Menstrual Age of Menarche: 9 Physical Exam Vital Signs: Last Vital Signs Pulse 75 02/16/24 09:38 Resp 14 02/16/24 09:38 BP 162/82 H 02/16/24 09:38 Pulse Ox 100 02/16/24 09:38 Oxygen Delivery Method Room Air 02/16/24 09:38 BMI result Body Mass Index 34.5 Assessment & Plan Assessment & Plan (1) MDD (major depressive disorder), recurrent episode: Code(s): F33.9 - Major depressive disorder, recurrent, unspecified (2) DANIEL (generalized anxiety disorder): Code(s): F41.1 - Generalized anxiety disorder (3) Vitiligo: Code(s): L80 - Vitiligo (4) Menopause: Code(s): Z78.0 - Asymptomatic menopausal state (5) Laboratory examination ordered as part of a routine general medical examination: Code(s): Z00.00 - Encounter for general adult medical examination without abnormal findings Orders: Orders Complete Blood Count no Diff Today Z00.00 - Encounter for general adult medical examination without abnormal findings Comprehensive [place]. Panel Fast Today Z00.00 - Encounter for general adult medical examination without abnormal findings Hemoglobin A1c Today Z00.00 - Encounter for general adult medical examination without abnormal findings Lipid Panel Today Z00.00 - Encounter for general adult medical examination without abnormal findings TSH reflex Free T4 Today Z00.00 - Encounter for general adult medical examination without abnormal findings Vitamin B12 and Folate Today Z00.00 - Encounter for general adult medical examination without abnormal findings Vitamin D 25-OH Total Today Z00.00 - Encounter for general adult medical examination without abnormal findings MM tomosynthesis screening BI Today Z12.31 - Encounter for screening mammogram for malignant neoplasm of breast Hepatitis A,B,C Profile Today Z00.00 - Encounter for general adult medical examination without abnormal findings IRON PROFILE Today Z00.00 - Encounter for general adult medical examination without abnormal findings Microalbumin, Random (w Creat) Today Z00.00 - Encounter for general adult medical examination without abnormal findings XR DEXA axial skeleton Today Z13.820 - Encounter for screening for osteoporosis, Z78.0 - Asymptomatic menopausal state Referrals Gastroenterology Referral Z12.11 - Encounter for screening for malignant neoplasm of colon Counseling Referral F33.9 - Major depressive disorder, recurrent, unspecified, F41.1 - Generalized anxiety disorder Dermatology Referral L80 - Vitiligo Coding Diagnoses MDD (major depressive disorder), recurrent episode F33.9 DANIEL (generalized anxiety disorder) F41.1 Vitiligo L80 Menopause Z78.0 Laboratory examination ordered as part of a routine general medical examination Z00.00
[2024-02-16 09:38] VITALS: BP 162/82; PULSE 75; RESP 14; O2SAT 100; BMI 34.5
[2024-02-16 09:58] VITALS: BP 160/80
--- NOTE | 2024-02-16 10:06 | MHC.PC.OV ---
Vital Signs 02/16/24 09:38 02/16/24 09:58 Height 5 ft 4 in Weight 201 lb BMI 34.5 BP 162/82 H 160/80 H Blood Pressure Location Lt brachial Lt brachial Position Sitting Sitting Respiration 14 Pulse 75 Pulse Source Pulse Oximeter Pulse Oximetry (%) 100 Oxygen Delivery Method Room Air Intake Visit Reasons: est/sleeping issues/headache Portal Architect Required: No Post menopausal: Yes Patient : No Allergies No Known Allergies [No Known Allergies*] Allergy (Verified 02/16/24 09:47) Medication List - Last Reconciled 02/16/24 by Kristen Rose, SHOE SEWING MACHINE OPERATOR AND TENDER- aripiprazole 5 mg PO DAILY escitalopram oxalate 20 mg PO DAILY hydroxyzine HCl 50 mg PO BEDTIME PRN omeprazole 20 mg PO DAILY trazodone 100 mg PO BEDTIME tretinoin 0.025% appl topical Tobacco use date assessed: 02/16/24 Dental Screening Dental Screen Date: 02/16/24 Did you have a dental visit in the last 12 months?: Yes Did you have a dental problem in the last 6 months where you did not have access to dental care?: No Was dental information given to patient?: Patient has dentist HPI HPI Comments History of Present Illness Details 53-year-old female with MDD with psychosis, history of intentional overdose 2020, multiple psychiatric admissions, bipolar 1, chronic GERD, hyperlipidemia, impaired fasting glucose, family hx of DM, menopause, headaches Status post gastrectomy, status post hysterectomy supracervical for fibroids and uterine prolapse Social: Pt has son and daughter, . Health Maintenance: ? Colon he has never had 1 done ? Mammo 06/24/22, Last mammogram; 09/2023, copy from [place]. ? DEXA density has never had 1 ? PAP 09/16/23 ASCUS positive HPV, copy from [place]. ? Tdap 2019, flu shot up-to-date Specialists: Dermatology GI hospital director Neuro Podiatry * Psychiatry General surgery* *no longer ff'd Here today to establish care and for complete physical exam She is requesting referral to a counselor and a med prescriber for her mental health conditions Would like a referral to Dermatology for her skin rash which is chronic Needs glasses, blurred vision bilat, overdue for eye exam Blood pressure has been noted to be elevated at the dentist. She denies being on any antihypertensives. Denies any cardiac symptoms. Active with conductor and engineer at [facility] for routine Women's Health. 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 However I do not see any records in regards to this. She was scheduled for colposcopy with Dr. Buchanan 02/25/2024 c/o general headache taking Tramadol for this. Plan Refer to Dermatology, Gastroenterology, Ophthalmology, counselor and prescriber Mammo and DEXA ordered Cont care w/ care team Routine screening labs today Follow up with nurse navigator in 2 weeks for blood pressure recheck She has tramadol and clonazepam listed as routine medications. She has not had these for some time. I can not pull them up in the prescription monitoring program. We will discontinue these medications. Same thing with phentermine. She can use OTC Excedrin Migraine for her headaches. I have referred to Neuro as well. Labs from today show vitamin-D deficiency, hyperlipidemia. We will start her on atorvastatin 20 mg p.o. daily and losartan 25 mg p.o. daily along with vitamin-D 50 mcg daily I have sent refills and on for trazodone, escitalopram and her trazodone. Return to office in 1 year for complete physical exam, sooner as needed This note is constructed using voice recognition software. While every effort has been made to ensure accuracy in tax processor, still errors may have been included Sometimes, these errors may affect the content or meaning of the given sentence . [facility] Medical History Ovarian cyst Screen for STD (sexually transmitted disease) Anxiety Depression History of gastrectomy Surgical History History of sleeve gastrectomy History of hysterectomy, supracervical Family History Father Diabetes Mother Diabetes Heart disease Family/Other FH: mental illness Maternal Aunt Ovarian cancer Social History Household Members: Family Housing: House Alcohol intake: never Patient Tobacco Use Status: Never used Tobacco e-Cigarette/Vaping Use: Never Used Second Hand Smoke Exposure: No service: No Current occupational status: unemployed Current occupational exposures/hazards: No Sexual orientation: Straight/Heterosexual Gender identity: Female Cognitive needs: No Hearing needs: No Vision needs: No Female Reproductive History Menstrual Age of Menarche: 9 Questionnaire PHQ-9 Over the last 2 weeks, how often have you been bothered by any of the following problems? 1. Little interest or pleasure in doing things: nearly every day 2. Feeling down, depressed, or hopeless: nearly every day 3. Trouble falling or staying asleep, or sleeping too much: nearly every day 4. Feeling tired or having little energy: nearly every day 5. Poor appetite or overeating: nearly every day 6. Feeling bad about yourself - or that you are a failure or have let yourself or your family down: nearly every day 7. Trouble concentrating on things, such as reading the newspaper or watching television: nearly every day 8. Moving or speaking so slowly that other people could have noticed. Or the opposite - being so fidgety or restless that you have been moving around a lot more than usual: not at all 9. Thoughts that you would be better off or of hurting yourself in some way: not at all Total score: 21 Depression Screening Interpretation: Positive Depression Screening Follow-up: Existing condition and Community Mental Health Worker F/U Depression Screening Done: Yes 05010 - PHQ-9 Billing: Yes Source: Developed by Drs. Valentin Jennings, Shahida Madsen, Teddy Santana and colleagues, with an educational bisi from [employer]. Thrive Questionnaire Date Thrive assessed: 02/16/24 I am a: Parent/Caregiver What is your living situation today?: I have a steady place to live Within the past 12 months, did the food you bought not last and you didn't have the money to get more?: Never true Within the past 12 months, did you worry whether your food would run out before you got money to buy more?: Never true Do you have trouble paying for medicines?: No Do you have trouble getting transportation to medical appointments?: No Do you have trouble paying your heating and electricity bill?: No Do you have trouble taking care of your child, family member or friend?: No Do you have trouble with day-to-day activities such as bathing, preparing meals, shopping, managing finances, etc.?: No Are you currently unemployed and looking for a job?: No Are you interested in more education?: No Please select the resources that you would like help with: None Currently or been in a relationship where the following occur: No concerns reported THRIVE Score: 0 AUDIT C Alcohol Use Questionnaire (AUDIT-C) 1. How often do you have a drink containing alcohol?: Never 3. How often do you have six or more drinks on one occasion?: Never Total Score: 0 Score Reviewed/Action Taken: Yes DANIEL-7 AMB Questionnaire DANIEL-7 Date DANIEL - 7 assessed: 10/08/21 Feeling nervous, anxious, or on edge: 2 = More than half the days Not being able to stop or control worryin = More than half the days Worrying too much about different things: 2 = More than half the days Trouble relaxin = More than half the days Being so restless that it is hard to sit still: 0 = Not at all Becoming easily annoyed or irritable: 0 = Not at all Feeling afraid as if something awful might happen: 0 = Not at all Total DANIEL-7 score (0-4 normal; 5-9 mild; 10-14 moderate; 15-21 severe): 8 Source: Developed by Drs. Valentin Jennings, Shahida Madsen, Teddy Santana and colleagues, with an educational bisi from [employer]. DANIEL-7 Assessment Billing DANIEL-7 Assessment Tool: DANIEL-7 Assessment 72825 Physical exam (Primary Care) Vital Signs: Last Vital Signs Pulse 75 02/16/24 09:38 Resp 14 02/16/24 09:38 BP 160/80 H 02/16/24 09:58 Pulse Ox 100 02/16/24 09:38 Oxygen Delivery Method Room Air 02/16/24 09:38 BMI result Body Mass Index 34.5 BMI Assessment/Plan discussion: High BMI High, discussed plan: lifestyle and other Tobacco/Smoking Status: Tobacco use Status Tobacco use date assessed 02/16/24 02/16/24 10:10 Patient Tobacco Use Status Never used Tobacco 02/16/24 10:10 e-Cigarette/Vaping Use Never Used 02/16/24 10:10 PHQ-9: PHQ-9 Score PHQ-9: Total score 21 02/16/24 12:42 Depression Screening Interpretation: Positive Depression Screening Follow-up: Existing condition and Community Mental Health Worker F/U Thrive Assessment: Date of Thrive Assessment Date Thrive assessed 02/16/24 02/16/24 10:10 Currently or been in a relationship where the following occur: No concerns reported Const Other: General: Well developed, well nourished, in no acute distress. Appears stated age. Head: Normocephalic, atraumatic. Eyes: Pupils are equal, round and reactive to light and accommodation. Conjunctivae are clear. Vision grossly normal. Ears: TMs clear AU, EACS WNL Nose: Patent, without discharge. Mouth: There are no ulcers or lesions noted. No inflammation, no post nasal drip, no plaques nor exudates. Neck: Supple, no adenopathy or thyromegaly. Lungs: Clear to auscultation bilaterally. No rales, rhonchi or wheeze noted. Good air flow in all nick. Heart: Regular rate and rhythm. No murmurs, click, rubs or gallops are noted. Abdomen: Bowel sounds present in all quadrants. The abdomen is soft, nontender, with no masses or organomegaly noted. No hernias are noted. Musculoskeletal: Joints are nontender, without swelling, redness, or effusions. Range of motion is observed to be normal. Pulses: Peripheral pulses are equal and palpable bilaterally. Extremities: No clubbing, cyanosis nor edema is noted. Neurologic: Gait and station normal. Cranial Nerves 2-12 intact. Motor strength grossly symmetrical and intact. No sensory loss. Balance normal. Skin: No rashes, ulcers, or lesions noted. Turgor is good. Skin color is good. Hair and nails are without abnormalities. Psych: Normal eye contact, affect and mood appropriate, and normal interactions. Patient is alert and appropriate to context. Coding Level of Care Code Est Pt Level 3 (52742) Est Pt Prev Care 40-64y(60054) Diagnoses Encounter for general adult medical examination with abnormal findings Z00.01 Severe episode of recurrent major depressive disorder, with psychotic features F33.3 Major depression episode severity: severe Psychotic features: with psychotic features DANIEL (generalized anxiety disorder) F41.1 Vitiligo L80 Menopause Z78.0 Laboratory examination ordered as part of a routine general medical examination Z00.00 Bipolar 1 disorder, depressed, moderate F31.32 Blurred vision, bilateral H53.8 Chronic GERD K21.9 Mixed hyperlipidemia E78.2 Hyperlipidemia type: mixed hyperlipidemia Insomnia disorder, with non-sleep disorder mental comorbidity G47.00 Melasma L81.1 Prediabetes R73.03 Obesity (BMI 30.0-34.9) E66.9 Class 1 obesity due to excess calories with serious comorbidity and body mass index (BMI) of 34.0 to 34.9 in adult E66.811; E66.09; Z68.34 Obesity type: due to excess calories Elevated blood pressure reading in office without diagnosis of hypertension R03.0 Encounter to establish care with new doctor Z76.89 Family history of diabetes mellitus Z83.3 Morbid obesity due to excess calories E66.01 Hx of drug overdose Z91.89 History of suicide attempt Z91.51 Additional Codes DANIEL-7 Assessment Billing - DANIEL-7 Assessment Tool: DANIEL-7 Assessment 11748 ([id number]) PHQ-9 - 11430 - PHQ-9 Billing: Yes ([id number]) Assessment & Plan Assessment & Plan (1) Encounter for general adult medical examination with abnormal findings: Code(s): Z00.01 - Encounter for general adult medical examination with abnormal findings (2) MDD (major depressive disorder), recurrent episode: Code(s): F33.9 - Major depressive disorder, recurrent, unspecified Category: Medical Qualifiers: Major depression episode severity: severe Psychotic features: with psychotic features Qualified Code(s): F33.3 - Major depressive disorder, recurrent, severe with psychotic symptoms (3) DANIEL (generalized anxiety disorder): Code(s): F41.1 - Generalized anxiety disorder Category: Medical (4) Vitiligo: Code(s): L80 - Vitiligo Category: Medical (5) Menopause: Code(s): Z78.0 - Asymptomatic menopausal state Category: Medical (6) Laboratory examination ordered as part of a routine general medical examination: Code(s): Z00.00 - Encounter for general adult medical examination without abnormal findings Category: Medical (7) Bipolar 1 disorder, depressed, moderate: Code(s): F31.32 - Bipolar disorder, current episode depressed, moderate Category: Medical (8) Blurred vision, bilateral: Code(s): H53.8 - Other visual disturbances Category: Medical (9) Chronic GERD: Code(s): K21.9 - Gastro-esophageal reflux disease without esophagitis Category: Medical (10) Hyperlipidemia: Code(s): E78.5 - Hyperlipidemia, unspecified Category: Medical Qualifiers: Hyperlipidemia type: mixed hyperlipidemia Qualified Code(s): E78.2 - Mixed hyperlipidemia (11) Insomnia disorder, with non-sleep disorder mental comorbidity: Code(s): G47.00 - Insomnia, unspecified Category: Medical (12) Melasma: Code(s): L81.1 - Chloasma Category: Medical (13) Prediabetes: Code(s): R73.03 - Prediabetes Category: Medical (14) Obesity (BMI 30.0-34.9): Code(s): E66.9 - Obesity, unspecified Category: Medical (15) Class 1 obesity with serious comorbidity and body mass index (BMI) of 34.0 to 34.9 in adult: Comment: PRE-DM, HLD Code(s): E66.811 - Obesity, class 1; Z68.34 - Body mass index [BMI] 34.0-34.9, adult Category: Medical Qualifiers: Obesity type: due to excess calories Qualified Code(s): E66.811 - Obesity, class 1; E66.09 - Other obesity due to excess calories; Z68.34 - Body mass index [BMI] 34.0-34.9, adult (16) Elevated blood pressure reading in office without diagnosis of hypertension: Code(s): R03.0 - Elevated blood-pressure reading, without diagnosis of hypertension Category: Medical (17) Encounter to establish care with new doctor: Code(s): Z76.89 - Persons encountering health services in other specified circumstances Plan: AN ADDITIONAL 30 MINUTES WAS SPENT ADDRESSING THE PROBLEM(S) NOTED AT TODAYS VISIT. THIS INCLUDES TIME SPENT BEFORE THE VISIT REVIEWING THE CHART, TIME SPENT DURING THE VISIT, AND TIME SPENT AFTER THE VISIT ON DOCUMENTATION (18) Family history of diabetes mellitus: Code(s): Z83.3 - Family history of diabetes mellitus Category: Medical (19) Morbid obesity due to excess calories: Code(s): E66.01 - Morbid (severe) obesity due to excess calories Category: Medical (20) Hx of drug overdose: Code(s): Z91.89 - Other specified personal risk factors, not elsewhere classified Category: Medical (21) History of suicide attempt: Code(s): Z91.51 - Personal history of suicidal behavior Category: Medical Plan . Orders: Orders Complete Blood Count no Diff Today Z00.00 - Encounter for general adult medical examination without abnormal findings Comprehensive [place]. Panel Fast Today Z00.00 - Encounter for general adult medical examination without abnormal findings Hemoglobin A1c Today Z00.00 - Encounter for general adult medical examination without abnormal findings Lipid Panel Today Z00.00 - Encounter for general adult medical examination without abnormal findings TSH reflex Free T4 Today Z00.00 - Encounter for general adult medical examination without abnormal findings Vitamin B12 and Folate Today Z00.00 - Encounter for general adult medical examination without abnormal findings Vitamin D 25-OH Total Today Z00.00 - Encounter for general adult medical examination without abnormal findings MM tomosynthesis screening BI Today Z12.31 - Encounter for screening mammogram for malignant neoplasm of breast Hepatitis A,B,C Profile Today Z00.00 - Encounter for general adult medical examination without abnormal findings IRON PROFILE Today Z00.00 - Encounter for general adult medical examination without abnormal findings Microalbumin, Random (w Creat) Today Z00.00 - Encounter for general adult medical examination without abnormal findings XR DEXA axial skeleton Today Z13.820 - Encounter for screening for osteoporosis, Z78.0 - Asymptomatic menopausal state Referrals Gastroenterology Referral Z12.11 - Encounter for screening for malignant neoplasm of colon Counseling Referral F31.32 - Bipolar disorder, current episode depressed, moderate, F33.3 - Major depressive disorder, recurrent, severe with psychotic symptoms, F41.1 - Generalized anxiety disorder Dermatology Referral L80 - Vitiligo Ophthalmology Referral H53.8 - Other visual disturbances Medications: New cholecalciferol (vitamin D3) 50 mcg PO DAILY 90 caps 2RF losartan 25 mg PO DAILY 90 tabs 0RF escitalopram oxalate 20 mg (2 x 10 mg) PO DAILY 30 tabs 0RF atorvastatin 20 mg PO BEDTIME 90 tabs 0RF Refilled omeprazole 20 mg PO DAILY 90 caps 0RF trazodone 100 mg PO BEDTIME 30 tabs 0RF
== END 2024-02-16 10:06 | disposition home or self-care (01) ==
LOC: HO.HMCWIW 09:25
PROVIDERS: PCP Nurse Practitioner Family; Visit Provider Nurse Practitioner Family
DX: K21.9 Gastro-esophageal reflux disease without esophagitis (principal); F31.32 Bipolar disorder, current episode depressed, moderate; E66.01 Morbid (severe) obesity due to excess calories; Z68.34 Body mass index [BMI] 34.0-34.9, adult; L80 Vitiligo; F41.1 Generalized anxiety disorder; Z78.0 Asymptomatic menopausal state; H53.8 Other visual disturbances; E78.2 Mixed hyperlipidemia; G47.00 Insomnia, unspecified; R73.03 Prediabetes

== ENCOUNTER → 2024-02-16 09:25 | Outpatient (BNVA) | payer OTHER, MEDICAID, SELFPAY | PROVIDERS: PCP Nurse Practitioner Family; Visit Provider Nurse Practitioner Family | DX: Z00.01 Encounter for general adult medical examination with abnormal findings (principal); F33.3 Major depressive disorder, recurrent, severe with psychotic symptoms; F41.1 Generalized anxiety disorder; H53.8 Other visual disturbances; K21.9 Gastro-esophageal reflux disease without esophagitis; E78.2 Mixed hyperlipidemia; L81.1 Chloasma; R73.03 Prediabetes; E66.9 Obesity, unspecified; Z68.34 Body mass index [BMI] 34.0-34.9, adult; R03.0 Elevated blood-pressure reading, without diagnosis of hypertension; Z91.89 Other specified personal risk factors, not elsewhere classified; Z76.89 Persons encountering health services in other specified circumstances; Z78.0 Asymptomatic menopausal state | CPT/HCPCS: 36415; 80053; 80061; 82306; 82570; 82607; 82746; 83036; 83540; 84443; 85027; 86704; 86706; 86709; 86803; 87340; 96127; 99212; 99396 ==

== ENCOUNTER 2024-02-16 10:13 | Outpatient (REF) | payer OTHER, MEDICAID, SELFPAY ==
[2024-02-16 11:24] LABS: Hematocrit 39.7 % (37.0-47.0); Hemoglobin 12.7 g/dl (12.0-16.0); Mean Corpuscular Hemoglobin 26.8 pg (27.0-33.0); Mean Corpuscular Volume 83.8 fL (80.0-98.0); Mean Platelet Volume 11.1 fL (9.4-12.3); Platelet Count 221 X10*3/uL (160-400); Red Blood Count 4.74 X10*6/uL (4.20-5.50); White Blood Count 5.9 X10*3/uL (4.8-10.8)
[2024-02-16 11:32] LABS: Estimated Average Glucose 114 mg/dL; Hemoglobin A1c % 5.6 % (<6.0); Total Hemoglobin (HGBA1C) 3288.0012 umol/L
[2024-02-16 12:14] LABS: Alanine Aminotransferase 18 U/L (0-31); Alkaline Phosphatase 77 U/L (39-117); Anion Gap 6 (12-20); Aspartate Amino Transferase 23 U/L (5-31); Bilirubin Total 0.7 mg/dL (0.0-1.0); Blood Urea Nitrogen 14 mg/dL (9-16); Calcium 9.2 mg/dL (8.4-10.2); Carbon Dioxide 32 mmol/L (22-29); Chloride 106 mmol/L (96-108); Cholesterol 215 mg/dL (<200); Estimated Glomerular Filt Rate > 60; Glucose Fasting 91 mg/dL (60-99); HDL Cholesterol 62 mg/dL (>40); Iron 96 mcg/dL (30-160); LDL Cholesterol Calculated 140 mg/dL (<100); Percent Iron Saturation 34 % (15-50); Potassium 3.9 mmol/L (3.3-5.1); Sodium 140 mmol/L (135-145); Total Iron Binding Capacity 283 mcg/dL (228-428); Total Protein 7.2 g/dL (6.5-8.0); Triglycerides 65 mg/dL (<150); Unsaturated Iron Binding 187 ug/dL
[2024-02-16 12:19] LABS: TSH reflex Free T4 1.19 uIU/mL (0.32-4.0); Vitamin D 25-OH Total 26.5 ng/mL (>30)
[2024-02-16 12:22] LABS: HBS Num1 0.52 mIU/mL (0-7.99); HBc Num1 0.37 S/CO (0.00-0.79); HBsAGNum1 0.46 S/CO (0.00-0.99); Hepatitis A Antibody IgM 0.27 Index (0-0.79); Hepatitis B Core Antibody Nonreactive (Nonreactive); Hepatitis B Surface Antigen Negative (Negative); ~Hepatitis A Antibody IgM Nonreactive (Nonreactive); ~Hepatitis B Surface Antibody NONREACTIVE (Nonreactive); ~Hepatitis C Antibody Nonreactive (Nonreactive)
[2024-02-16 12:32] LABS: Folate 6.8 ng/mL (> or = 4.0); Vitamin B12 552 pg/mL (200-900)
[2024-02-16 15:19] LABS: Creatinine Urine 100.07 mg/dL; Microalbumin Urine < 5.0 mg/L
== END 2024-02-16 10:14 | disposition home or self-care (01) ==
LOC: HO.WFDLDS 10:13
PROVIDERS: Visit Provider Nurse Practitioner Family
DX: Z13.89 Encounter for screening for other disorder (principal)
CPT/HCPCS: 36415; 80053; 80061; 82043; 82306; 82570; 82607; 82746; 83036; 83540; 84443; 85027; 86704; 86706; 86709; 86803; 87340

== ENCOUNTER 2024-02-20 07:52 | Outpatient (REF) | payer OTHER, MEDICAID, SELFPAY | END 2024-02-20 07:53 | disposition home or self-care (01) | LOC: HO.LNP 07:52 | PROVIDERS: PCP Nurse Practitioner Family; Visit Provider Obstetrics & Gynecology | DX: R87.619 Unspecified abnormal cytological findings in specimens from cervix uteri (principal) | CPT/HCPCS: 57454; 88305; 88342; 88360 ==

== ENCOUNTER 2024-02-20 07:52 | Outpatient (AMB) | payer MEDICARE, MEDICAID, SELFPAY ==
--- NOTE | 2024-02-20 08:38 | A.OFFVIS_ITS ---
Vital Signs 02/20/24 08:41 Height 5 ft 4 in BP 126/88 Intake Visit Reasons: Colposcopy/per Sherrell Title I Instructional Assistant: Title I Instructional Assistant Present (Alicia) Allergies No Known Allergies [No Known Allergies*] Allergy (Verified 02/20/24 08:40) HPI Comments Details: Presenting referred from Sherrell Nuñez regarding an abnormal Pap smear showing ASCUS, AGC, HPV high-risk positive, HPV 16/18/45 negative [facility] Medical History (Updated 02/20/24 @ 08:44 by Vic Buchanan MD) Ovarian cyst Screen for STD (sexually transmitted disease) Anxiety Depression History of gastrectomy Surgical History (Updated 02/20/24 @ 08:58 by Vic Buchanan MD) History of sleeve gastrectomy History of hysterectomy, supracervical Family History Father Diabetes Mother Diabetes Heart disease Family/Other FH: mental illness Maternal Aunt Ovarian cancer Social History Household Members: Family Housing: House Alcohol intake: never Patient Tobacco Use Status: Never used Tobacco e-Cigarette/Vaping Use: Never Used Second Hand Smoke Exposure: No service: No Current occupational status: unemployed Current occupational exposures/hazards: No Sexual orientation: Straight/Heterosexual Gender identity: Female Cognitive needs: No Hearing needs: No Vision needs: No Female Reproductive History Menstrual Age of Menarche: 9 Review of Systems Const All systems reviewed & are unremarkable except as noted in HPI and below Physical Exam General: Yes no CVA tenderness External Female Exam: normal external appearance and normal appearance of the urethra Speculum Exam - Vagina: normal appearance of the vagina, normal palpation, no lesions and no masses Speculum Exam - Cervix: normal appearance of the cervix, normal palpation, no lesions, no masses and nontender Bimanual exam- vagina & uterus: normal bimanual exam, normal palpation, uterine size normal, normal palpation, uterine shape normal, No Cervical tenderness present and non-tender Bimanual Exam- Adnexa, other: normal adnexae Back/Spine/Pelvis Back: no CVA tenderness Office Procedures Colposcopy Colposcopy: Pre-Procedure Counseling: Before beginning the procedure, I conducted comprehensive counseling with the patient. We thoroughly discussed the procedure itself, including its details, alternatives, and all associated risks. This included but not limited to the following complications such as bleeding, infection, and injury to the vagina, bladder, and vessels, as well as the potential need for transfusion with all its associated risks. Subsequently, the patient sign the consent. Pap smear result: Ascus/AGC HPV high-risk positive HPV 16/18/45 negative, the patient is status post supracervical hysterectomy in 2009 Procedure: During the procedure, the following steps were performed: A speculum was inserted, and acetic acid was applied. Colposcopy was conducted, allowing visualization of the transformation zone. Acetowhite lesions were identified at the 5+6+11+12 o'clock position. Cervical biopsies were obtained from the 5+6+11+12 o'clock position, followed by an endocervical curettage (ECC). Since the patient is status post supracervical hysterectomy, no EMB was done although Pap smear showed AGC Vaginoscopy of the upper vagina revealed no evidence of aceto-white lesions. Hemostasis was achieved using Monsel solution, and the patient tolerated the procedure well. Post-Procedure Instructions: The patient was advised to promptly contact the office or the after hours answering service or go to the emergency room if experiencing a temperature exceeding 100.4?F, abdominal pain, nausea/vomiting, or bleeding. Additionally, the patient was instructed to abstain from vaginal intercourse and bathtub use. The patient confirmed understanding of these instructions. Discharge Instructions: The patient was instructed to schedule a follow-up appointment in 2 weeks for further evaluation and management. Please note that this note was generated using a voice recognition program, and errors may have occurred during research and development chemist. [id number] of cervix including upper vagina with biopsy and ECC Procedure code (CPT) selection complete Assessment & Plan Assessment & Plan (1) Atypical glandular cells of undetermined significance (ABIOLA) on cervical Pap smear: Comment: With ascus/HPV high-risk positive HPV 16/18/45 negative Code(s): R87.619 - Unspecified abnormal cytological findings in specimens from cervix uteri Category: Medical Plan: Discussed with the patient the result of her abnormal pap, its significance, risk of progression, persistence, and regression. the false positive/negative rate of a Pap smear as a screening test in detecting cervical cancer and the indication for a diagnostic test -colposcopy, biopsy, endocervical curettage, in addition since the patient had a history of supracervical hysterectomy in 2009, no endometrial biopsy will be done although the patient is above the age of 35 with atypical glandular cells. The patient verbalized understanding and agreed with the plan, all questions answered. Since the patient has a supracervical hysterectomy, no EMB is indicated, therefore will proceed with Colpo/biopsy/ECC done, see procedure note Orders: Orders AMB Colposcopy Today R87.619 - Unspecified abnormal cytological findings in specimens from cervix uteri Coding Level of Care Code Procedure Only Diagnoses Atypical glandular cells of undetermined significance (ABIOLA) on cervical Pap smear R87.619 CPT Codes Colposcopy - CPT: 05183-Optyysevn of cervix including upper vagina with biopsy and ECC ([id number])
[2024-02-20 08:41] VITALS: BP 126/88
== END 2024-02-20 09:03 | disposition home or self-care (01) ==
LOC: HO.HWS 07:52
PROVIDERS: PCP Nurse Practitioner Family; Visit Provider Obstetrics & Gynecology
DX: R87.619 Unspecified abnormal cytological findings in specimens from cervix uteri (principal)
CPT/HCPCS: 57454

== ENCOUNTER 2024-03-01 11:19 | Outpatient (AMB) | payer OTHER, MEDICAID, SELFPAY ==
--- NOTE | 2024-03-01 11:20 | A.OFFVIS_ITS ---
Intake Visit Reasons: TV Colpo results Allergies No Known Allergies [No Known Allergies*] Allergy (Verified 02/20/24 08:40) HPI Comments Details: The patient is schedule telehealth visit post colpo for follow-up. The patient is doing well with no complaints. Pap smear showed ASCUS/ atypical glandular cells, NOS/HPV positive, the patient is status post supracervical hysterectomy . No EMB done. The pathology showed the following: A. Endocervix, curettage: Endocervical glandular mucosa with marked inflammation and focal squamous metaplasia with reactive changes; negative for dysplasia. B. Cervix, 5:00, biopsy: Endocervical glandular mucosa with marked inflammation; negative for dysplasia; no squamous component present. C. Cervix, 6:00, biopsy: Squamous and endocervical glandular mucosa with inflammation and reactive changes; negative for dysplasia. D. Cervix, 11:00, biopsy: Squamous and endocervical glandular mucosa with marked inflammation and reactive changes; negative for dysplasia. E. Cervix, 12:00, biopsy: Squamous mucosa with inflammation and reactive changes, and scant detached endocervical glandular epithelium; negative for dysplasia. Comment: The patient is reported to have atypical glandular cells, atypical squamous cells, and positive high-risk HPV on a previous Pap not at this institution. The patient's [facility] Pap [facility] was negative with negative HPV test ([id number]) [facility] Medical History Ovarian cyst Screen for STD (sexually transmitted disease) Anxiety Depression History of gastrectomy Surgical History History of sleeve gastrectomy History of hysterectomy, supracervical Family History Father Diabetes Mother Diabetes Heart disease Family/Other FH: mental illness Maternal Aunt Ovarian cancer Social History Household Members: Family Housing: House Alcohol intake: never Patient Tobacco Use Status: Never used Tobacco e-Cigarette/Vaping Use: Never Used Second Hand Smoke Exposure: No service: No Current occupational status: unemployed Current occupational exposures/hazards: No Sexual orientation: Straight/Heterosexual Gender identity: Female Cognitive needs: No Hearing needs: No Vision needs: No Female Reproductive History Menstrual Age of Menarche: 9 Review of Systems Const All systems reviewed & are unremarkable except as noted in HPI and below Reports as per HPI and Reports no additional complaints GI Reports no additional complaints Reports no additional complaints Telehealth Telehealth Telehealth Platform: Telephone Location of provider rendering services: practice address Location of patient: address on file Patient Identification confirmed using: Name, : Yes Telehealth method: video Patient verbally consented to treatment: Yes Patient verbally consented to billing insurance company: Yes Patient informed of any privacy concerns related to visit: Yes Assessment & Plan Assessment & Plan (1) Atypical glandular cells of undetermined significance (ABIOLA) on cervical Pap smear: Comment: AGC, NOS With ascus/HPV high-risk positive HPV 16/18/45 negative Code(s): R87.619 - Unspecified abnormal cytological findings in specimens from cervix uteri Category: Medical Plan: Discussed with the patient the pathology results of the colposcopy biopsies & endocervical curettage ( negative). Discussed with the patient the sensitivity specificity, positive and negative predictive value in detecting cervical cancer in addition discussed the regression, persistence and progression rates. Recommended co-testing in 12 months, if cytology and or HPV are abnormal will proceed was colposcopy biopsy and endocervical curettage, if lesions gets worse or stays persistent for 2 years will proceed with loop electric excision procedure. Instructions given to the patient to schedule a co test appointment in 1 year. All questions answered the patient verbalized understanding. I spent a total of 20 minutes reviewing the chart, talking to the patient via video and documenting in the medical record. Coding Level of Care Code Tele Est Pt Level 3 (99993) Diagnoses Atypical glandular cells of undetermined significance (ABIOLA) on cervical Pap smear R87.619
== END 2024-03-01 11:50 | disposition home or self-care (01) ==
LOC: HO.HWS 11:19
PROVIDERS: PCP Nurse Practitioner Family; Visit Provider Obstetrics & Gynecology
DX: R87.619 Unspecified abnormal cytological findings in specimens from cervix uteri (principal)
CPT/HCPCS: 99213

== ENCOUNTER → 2024-03-01 11:19 | Outpatient (BNVA) | payer OTHER, MEDICAID, SELFPAY | PROVIDERS: PCP Nurse Practitioner Family; Visit Provider Obstetrics & Gynecology ==